=== PATIENT | male | born 1960 | race Two or more races ===

== ENCOUNTER 2016-11-15 07:09 | Outpatient (CLI) ==
[2016-11-15 08:45] LABS: HEMATOCRIT 30.4 % (42.0-52.0); HEMOGLOBIN 10.4 g/dl (14.0-18.0); MEAN CORPUSCULAR HEMOGLOBIN 30.3 pg (27.0-31.0); MEAN CORPUSCULAR HGB CONC 34.2 (31.8-35.4); MEAN CORPUSCULAR VOLUME 88.6 fl (80.0-94.0); PLATELET COUNT 96 10^3/uL (140-440); RED BLOOD COUNT 3.43 10^6/ul (4.70-6.10)
[2016-11-15 09:24] LABS: ALBUMIN 3.5 g/dL (3.4-5.0); ALBUMIN/GLOBULIN RATIO 0.7; ANION GAP 13.8; BILIRUBIN,TOTAL 0.64 mg/dL (0.00-1.20); BUN/CREATININE RATIO 17.34; CALCIUM 9.6 mg/dL (8.2-10.2); CHOL/HDL RATIO 4.6 (4.5-6.4); CREATININE 0.98 mg/dL (0.60-1.10); POTASSIUM 3.8 mmol/L (3.5-5.1); TOTAL PROTEIN 8.5 g/dL (6.4-8.2)
[2016-11-15 09:47] LABS: ANISOCYTOSIS NOT PRESENT (NOT PRESENT); WHITE BLOOD COUNT 1.66 K/ul (4.2-10.2)
--- NOTE | 2016-11-15 12:24 | ECHO2D ---
Date of Exam: 11/15/16 Ordering Physician: JODY ROMERO Reason for Echo: CAD, CABG, SOB M-Mode Normal Adult Results LV Dimensions Normal Adult Results AoV Opening excursions >1.6 >1.6 LVEDD-base- 3.5-5.8 5.3 Ao root dimensions 2.0-3.7 3.6 LVESD-base- 3.1-4.6 L. Atrium dimensions 1.9-3.8 3.3 Post. Wall thickness 0.8-1.1 1.1 IV septum (thickness) 0.7-1.2 1.1 Post. Wall excursion 0.72-1.3 0.8 Septal motion 0.7 Systolic motion R. Ventricular cavity 1.5-2.0 NORMAL LVEF 60% 45% Paradoxical septal wall motion NORMAL 2-D : HYPOKINETIC LEFT VENTRICLE, NORMAL VALVES--NO EFFUSION, NO THROMBUS, LEFT VENTRICLE AND LEFT ATRIAL SIZE ARE NORMAL M-MODE: MV: NORMAL AV: NORMAL TV: NORMAL PV: CHAMBER SIZE: NORMAL WALL MOTION: HYPOKINETIC LEFT VENTRICLE PERICARDIUM: NORMAL INTERPRETATION: 1. HYPOKINETIC LEFT VENTRICLE, LEFT VENTRICULAR EJECTION FRACTION 45% 2. NORMAL VALVES 3. NORMAL LEFT ATRIAL AND LEFT VENTRICLE SIZE MTDD
== END 2016-11-15 07:10 | disposition home or self-care (01) ==
LOC: CAR 07:09
PROVIDERS: ATTEND Emergency Medicine
DX: R06.02 Shortness of breath (principal); I25.810 Atherosclerosis of coronary artery bypass graft(s) without angina pectoris; D64.9 Anemia, unspecified; B19.20 Unspecified viral hepatitis C without hepatic coma; R73.09 Other abnormal glucose; M15.9 Polyosteoarthritis, unspecified; E55.9 Vitamin D deficiency, unspecified; Z12.5 Encounter for screening for malignant neoplasm of prostate
CPT/HCPCS: 36415; 80053; 80061; 82306; 82607; 83036; 84443; 85007; 85025; 86803

== ENCOUNTER 2016-11-16 07:24 | Outpatient (CLI) ==
--- NOTE | 2016-11-17 14:43 | STRESSECHO ---
Date of Test: 11/16/2016 Reason for Exam: SHORTNESS OF BREATH, CORONARY ARTERY DISEASE, HISTORY OF CORONARY ARTERY BYPASS GRAFT Ordering Physician: DR. ROMERO / DR. POOL Current Medications: ASPIRIN, FISH OIL, IRON, LISINOPRIL, METOPROLOL TARTRATE, PLAVIX, PREDNISONE, HYDROXYCHLOROQUINE Physical Findings: S1,S2, NO S3 Resting EKG: SINUS RHYTHM WITH NO ACUTE CHANGES Target Heart Rate: 138/163 OXYGEN SATURATION 98% AT REST ON ROOM AIR STAGE MPH/GRADE HEART RATE BPM BLOOD PRESSURE mmhg RHYTHM S-T SEGMENT +/- UP DOWN SYMPTOMS,COMMENTS At Rest 82 138/80 SR X NONE 1 1.7/10% 140 SR X NONE 2 2.5/12% 3 3.4/14% 4 4.2/16% 5 5.0/18% Immediately after 157 SR X NONE Durations of Exercise: 3 MINUTES AND 37 SECONDS Maximum Heart Rate Reached: 157 Reason for Termination: FATIGUE Minutes Post Exercise: 4 HeartRate: 99 Blood Pressure: 142/80 Rhythm: SR S-T Segment: +/- Symptoms: NONE INTERPRETATION: 98% OXYGEN SATURATION WITH EXERCISE ON ROOM AIR, METS 6.0 1. NO EVIDENCE OF ISCHEMIA BY ST-T WAVE 2. NO COMPLAINTS OF CHEST PAIN OR DISCOMFORT 3. NO ARRHYTHMIAS 4. BLOOD PRESSURE RESPONSE NORMAL 5. NORMAL LEFT VENTRICULAR CONTRACTILITY POST EXERCISE, MILD HYPOKINETIC LEFT VENTRICLE AT REST MTDD
--- NOTE | 2016-11-17 14:59 | ECHOSTRESS ---
Date of Exam: 11/16/2016 Ordering Physician: DR. ROMERO Reason for Echo: SHORTNESS OF BREATH, CORONARY ARTERY DISEASE, HISTORY OF CORONARY ARTERY BYPASS GRAFT M-Mode Normal Adult Results LV Dimensions Normal Adult Results AoV Opening excursions >1.6 LVEDD-base- 3.5-5.8 Ao root dimensions 2.0-3.7 LVESD-base- 3.1-4.6 L. Atrium dimensions 1.9-3.8 Post. Wall thickness 0.8-1.1 IV septum (thickness) 0.7-1.2 Post. Wall excursion 0.72-1.3 Septal motion Systolic motion R. Ventricular cavity 1.5-2.0 LVEF 60% Paradoxical septal wall motion 2-D: HYPOKINETIC LEFT VENTRICLE AT REST, IMPROVED LEFT VENTRICULAR CONTRACTILITY WITH EXERCISE M-MODE: MV: AV: TV: PV: CHAMBER SIZE: WALL MOTION: HYPOKINETIC LEFT VENTRICLE AT REST, IMPROVED LEFT VENTRICULAR CONTRACTILITY WITH EXERCISE PERICARDIUM: INTERPRETATION: 1. HYPOKINETIC LEFT VENTRICLE AT REST, IMPROVED LEFT VENTRICULAR CONTRACTILITY WITH EXERCISE MTDD
== END 2016-11-16 07:25 | disposition home or self-care (01) ==
LOC: CAR 07:24
PROVIDERS: ATTEND Emergency Medicine
DX: R06.02 Shortness of breath (principal); I25.810 Atherosclerosis of coronary artery bypass graft(s) without angina pectoris

== ENCOUNTER 2018-01-08 09:43 | Outpatient (CLI) ==
--- NOTE | 2018-01-08 11:09 | DI ---
Exam: Two x-rays of the chest. Comparison: None available. Reason for exam: Short of breath. FINDINGS: No pneumothorax. Operative changes are seen after midline sternotomy. There is blunting of the left costophrenic angle. Impression: 1. Blunting of the left costophrenic angle likely a pleural effusion. Cannot rule out underlying at electasis or infection. 2. The right lung is clear.
== END 2018-01-08 09:44 | disposition home or self-care (01) ==
LOC: LAB 09:43
PROVIDERS: ATTEND Emergency Medicine
DX: R06.02 Shortness of breath (principal); I25.118 Atherosclerotic heart disease of native coronary artery with other forms of angina pectoris; I50.22 Chronic systolic (congestive) heart failure
CPT/HCPCS: 36415; 80053; 83880; 85025

== ENCOUNTER 2018-01-10 11:40 | Inpatient (IN) ==
[2018-01-10 12:47] VITALS: BMI 27.9
[2018-01-10] MEDS ORDERED: LASIX IVP STA (13:25)
[2018-01-10] MEDS ORDERED: TYLENOL PO PRN (13:26)
[2018-01-10] MEDS: DUONEB NEB SCH ×2 (13:47→22:30)
[2018-01-10] MEDS: SODIUM CHLORIDE 1,000 ML IV SCH (13:51)
--- NOTE | 2018-01-10 15:12 | CT ---
EXAM: CT abdomen pelvis without intravenous contrast 01/10/2018. Sagittal and coronal reformatted i mages obtained HISTORY: Abdominal swelling COMPARISON: None. FINDINGS: The liver, adrenal glands, kidneys, spleen and pancreas show no gross abnormality. Status post cholecystectomy Limited characterization of solid organ pathology due to lack of intravenous contrast. No bowel obstruction. Unremarkable urinary bladder. No free air. Atherosclerotic vascular disease. The appendix is not definitively identified No acute osseous abnormality IMPRESSION: 1. There is a large quantity abdominal and pelvic ascites. 2. Status post cholecystectomy. 3. Subcutaneous edema. 4. Atherosclerotic vascular disease. 5. Limited characterization of solid organ pathology due to the lack of intravenous contrast.
[2018-01-10] MEDS: COREG PO SCH (17:21)
[2018-01-10] MEDS: MICRO-K CAP PO SCH (17:22)
[2018-01-10] MEDS ORDERED: NON-FORMULARY MEDICATION (Potassium Chloride [Potassium Chloride] 10 MEQ) PO SCH (21:00)
[2018-01-11] MEDS: DUONEB NEB SCH ×3 (05:17→20:57)
[2018-01-11] MEDS: LASIX TAB PO SCH (06:22)
[2018-01-11] MEDS ORDERED: ASPIRIN EC PO SCH (08:00)
[2018-01-11] MEDS: COREG PO SCH ×2 (08:54→17:26)
[2018-01-11] MEDS: SODIUM CHLORIDE 1,000 ML IV SCH (08:54)
[2018-01-11] MEDS: MICRO-K CAP PO SCH ×2 (08:54→17:26)
[2018-01-11] MEDS ORDERED: NON-FORMULARY MEDICATION (Aspirin [Aspirin] 325 MG) PO SCH (09:00)
--- NOTE | 2018-01-11 16:39 | CT ---
EXAM: CT chest without contrast HISTORY: Congestive heart failure, abdominal swelling COMPARISON: None TECHNIQUE: CT chest performed without intravenous contrast. Coronal and sagittal reformatted images obtained. FINDINGS: Thyroid and thoracic inlet appear normal. Heart normal in size. Coronary calcifications. No pericardial effusion. Aorta normal in caliber. Mild atherosclerosis. Esophagus unremarkable. Evaluation for lymphadenopathy limited without contrast. No lymphadenopathy identified. Upper abdo chirag ascites is incompletely imaged and similar to CT 01/10/2018. No acute abnormalities of the bon es. Degenerative change in the spine. Median sternotomy wires. Small debris in the trachea. Mild bibasilar atelectasis. Trace bilateral pleural effusions. No airspace consolidation. No pneumothor ax. 6 mm ground-glass nodule versus dependent density right lung image 16. IMPRESSION: 1. Trace bilateral pleural effusions. Mild basilar atelectasis. 2. 6 mm ground-glass nodule right lung versus dependent density. CT chest follow-up recommended in 6 months for reevaluation. 3. Coronary calcifications. Atherosclerosis. 4. Trace debris in the trachea. 5. Upper abdominal ascites, incompletely imaged, with visualized portion similar to CT abdomen pelvi s 01/10/2018
--- NOTE | 2018-01-11 16:40 | US ---
Bilateral lower extremity venous Doppler HISTORY: Pain and tenderness Bilateral lower extremity. FINDINGS: Lower extremity venous structures examined for spontaneous flow, compression and augmentat ion. The common femoral vein, and greater saphenous, profunda, femoral, popliteal, peroneal, anterio r tibial and posterior tibial veins were examined. Visualized vessels are patent to spontaneous flow , compression and augmentation. Bilateral subcutaneous fat edema. IMPRESSION: 1.. No evidence of deep venous thrombosis Bilateral lower extremity.
[2018-01-12] MEDS: DUONEB NEB SCH ×3 (04:38→21:50)
[2018-01-12] MEDS: SODIUM CHLORIDE 1,000 ML IV SCH (05:31)
[2018-01-12] MEDS: LASIX TAB PO SCH (06:01)
[2018-01-12] MEDS ORDERED: BUMEX PO ONE (08:36)
[2018-01-12] MEDS: MICRO-K CAP PO SCH ×2 (09:44→17:23)
[2018-01-12] MEDS: COREG PO SCH ×2 (09:44→17:23)
--- NOTE | 2018-01-12 15:46 | RS.OTINEVL ---
Subjective - Patient information Date of Evaluation: 01/12/18 Date of Arrival on Unit: 01/12/18 Admitted From:: Home Usual Living Arrangement: Alone Living Arrangement Comments: Pt lives alone at home. Home Environment: House Medical History Comments:: Lupus, Edema of BLE in last 3 months, CHF, [place]-2009 Surgical History: CABG Surgical History Comments:: gallbladder, CABG Subjective Information/ Patient Comments:: "I take care of myself." - Level of function Current Level of Function: Partially Dependent Comments: Pt is CGA for functional transfers. Pt has an IV pole and has edema of BLE. Current Equipment Used at Home: None Pain Assessment - Pain Pain Score: 5 Side: left Pain Location Body Site: Hip Pain Aggravating Factors: Changing Position, Standing Pain Alleviating Factors: Position Change Interventions - Objective Patient Orientation: Person, Place, Time, Situation Current Interventions: IV's, Telemetry Observation: Patient has edema in BLE. Pt has swelling in the abdomen. Interventions - ROM Right Upper Extremity AROM: WFL's Left Upper Extremity AROM: WFL's - Strength Right Upper Extremity Strength: Mild Weakness Left Upper Extremity Strength: Mild Weakness - Sensation Right Upper Extremity Sensation: Intact/Normal Left Upper Extremity Sensation: Intact/Normal Balance - Sitting Balance Static Sitting Balance: Good Dynamic Sitting Balance: Good - Standing Balance Static Standing Balance: Fair Dynamic Standing Balance: Fair - Comments Balance Assessment Comments: Fair ADL Skills - Self Feeding Self Feeding: Independent - Grooming Grooming: Independent - Bathing Bathing UE: CGA Bathing LE: CGA - Dressing Dressing UE: Independent, CGA Dressing LE: CGA - Toilet Management Toileting Management: CGA Functional Mobility - Bed Mobility Rolling R/L: Min Assist Scooting: Min Assist Supine to Sit: Min Assist Sit to Supine: Min Assist - Transfers Sit to Stand: Independent Stand to Sit: Independent Stand Pivot Transfers: CGA - Ambulation Weight Bearing Status: FWB Assistive Device Used: No Assistive Device Assistance needed with Ambulation: Min Assist, 1 person assist - Safety Awareness Safety Awareness: Good JASSON INDEX SCORE: . Additional Treatment Performed - Time with patient Total treatment time: 20 Activities Do you enjoy playing games?: No Would you be interested in leaving your room for activities?: No Would you enjoy group activities?: No Patient Interests:: Watching Television Patient Education Patient Education: Education of diagnosis, Home Safety, Education of Plan of Care Teaching Recipient: Patient Teaching Methods: Discussion Assessment Problem List:: Decreased level of function, Weakness, Pain limits previous level of function Further Therapy Indicated?: Yes Evaluation Complexity: HISTORY: Low, EXAM OF BODY SYSTEMS: Low, CLINICAL DECISION MAKING: Low Short Term Goals - Goals GOAL 1: Pt to be SBA for toilet transfer. Goal to be met by: 01/16/18 GOAL 2: Pt to be (I) with sink level ADLS. Goal to be met by: 01/16/18 GOAL 3: Pt to increase activity tolerance for 15 minutes. Goal to be met by: 01/16/18 Intermediate Goals GOAL 1: Pt to be (I) for toilet transfer. Goal to be met by: 01/19/18 GOAL 2: Pt to be independent with all self care management. Goal to be met by: 01/19/18 GOAL 3: Pt to increase activity tolerance for 20 minutes. Goal to be met by: 01/19/18 Plan Plan of Care: Therapeutic EX, Neuromuscular Re-Educ, Therapeutic Activity, Self- Care/Home Management Frequency of Treatment: 1-2 X day, as tolerated Duration of Treatment: 2 Weeks Anticipated Discharge Destination: Home Treatment Diagnosis (ICD 10 Codes): M62.81, R26.81, Has the Physician been added for Co-signature?: Yes
[2018-01-13] MEDS: SODIUM CHLORIDE 1,000 ML IV SCH (00:53)
[2018-01-13] MEDS: DUONEB NEB SCH ×3 (04:18→21:50)
[2018-01-13] MEDS: LASIX TAB PO SCH (05:48)
[2018-01-13] MEDS ORDERED: BUMEX PO ONE (08:36)
[2018-01-13] MEDS ORDERED: LIDOCAINE 2%-EPI 1:100,000 20 ML MDV INJ STA (09:53)
--- NOTE | 2018-01-13 13:21 | PCM.PROG ---
[] PARACENTESIS PROCEDURE After obtaining informed consent about the pros and cons of the procedure. Patient agree for the Diagnostic and Therapeutic Paracentesis. Site: Left LQ prep: cleaned with hibiclens. Prepared the sterile area on left lower quadrant. Anesthesia: 2% Lidocaine infiltrated the area. Procedure; With help of Puncture needle, the needle was in 2 cm deep, fluid started coming, serous, clear , samples collected, and drained total of 550 ml fluid. No resistance while doing the procedure or no pain. After removing needle the area is cleaned and Band aid is applied. Ordered KUB
[2018-01-13] MEDS ORDERED: LIBRIUM PO PRN (13:30)
[2018-01-13] MEDS ORDERED: INFUVITE ADULT IV ONE (14:51)
[2018-01-13] MEDS: INFUVITE ADULT 10 ML in SODIUM CHLORIDE 1,000 ML IV SCH (15:02)
[2018-01-13] MEDS: MICRO-K CAP PO SCH ×2 (15:09→17:35)
--- NOTE | 2018-01-13 15:09 | DI ---
EXAMINATION: Two supine views of the abdomen. HISTORY: Status post procedure, fluid drawn from abdomen. COMPARISONS: 01/10/2018. FINDINGS: There is a paucity of bowel gas. Stool is seen overlying the colon. Surgical clips overl ie the upper abdomen. No suspicious calcifications are seen. Operative changes of midline sternotom y is seen. Osseous structures appear grossly unremarkable. . IMPRESSION: Nonspecific paucity of bowel gas.
[2018-01-13] MEDS: COREG PO SCH ×2 (15:10→17:58)
[2018-01-13] MEDS: THIAMINE IVP SCH (15:10)
[2018-01-13] MEDS: PROTONIX PO SCH ×2 (15:13→17:35)
[2018-01-14] MEDS ORDERED: INFUVITE ADULT IV ONE ×2 (02:01→15:22)
[2018-01-14] MEDS: INFUVITE ADULT 10 ML in SODIUM CHLORIDE 1,000 ML IV SCH ×2 (02:11→15:30)
[2018-01-14] MEDS: DUONEB NEB SCH ×3 (05:02→21:46)
[2018-01-14] MEDS: PROTONIX PO SCH ×2 (05:34→17:10)
[2018-01-14] MEDS: LASIX TAB PO SCH (05:34)
[2018-01-14] MEDS: MICRO-K CAP PO SCH ×2 (08:59→17:11)
[2018-01-14] MEDS: COREG PO SCH ×2 (08:59→17:11)
[2018-01-14] MEDS: THIAMINE IVP SCH (09:00)
[2018-01-14] MEDS ORDERED: ROCEPHIN ONE (13:14)
[2018-01-14] MEDS: ALDACTONE PO SCH (13:19)
[2018-01-14] MEDS: ROCEPHIN 1 GM in SODIUM CHLORIDE 50 ML IV SCH (13:19)
[2018-01-15] MEDS ORDERED: INFUVITE ADULT IV ONE ×2 (02:43→14:27)
[2018-01-15] MEDS: INFUVITE ADULT 10 ML in SODIUM CHLORIDE 1,000 ML IV SCH ×2 (02:49→14:31)
[2018-01-15] MEDS: DUONEB NEB SCH ×2 (05:05→13:34)
[2018-01-15] MEDS: LASIX TAB PO SCH (05:35)
[2018-01-15] MEDS: PROTONIX PO SCH ×2 (05:35→16:38)
--- NOTE | 2018-01-15 12:01 | US ---
EXAM: Bilateral lower extremity venous Doppler History: Bilateral calf pain and swelling. Technique: Multiple sonographic images through the bilateral lower extremities were obtained. Color duplex Doppler was used to interrogate vascular flow. Findings: The bilateral common femoral, greater saphenous, profunda, superficial femoral, popliteal, peroneal, posterior tibial and anterior tibial veins demonstrate spontaneous flow with normal compression and n ormal augmentation. There is bilateral lower extremity subcutaneous edema. Impression: 1. No sonographic evidence for deep venous thrombosis. 2. Bilateral lower extremity subcutaneous edema
[2018-01-15] MEDS: ALDACTONE PO SCH (12:02)
[2018-01-15] MEDS: ROCEPHIN 1 GM in SODIUM CHLORIDE 50 ML IV SCH (12:02)
[2018-01-15] MEDS: COREG PO SCH ×2 (12:03→16:38)
[2018-01-15] MEDS: MICRO-K CAP PO SCH ×2 (12:03→16:38)
[2018-01-15] MEDS: THIAMINE IVP SCH (12:03)
--- NOTE | 2018-01-15 12:37 | PN ---
DATE OF SERVICE: 01/11/18 SUBJECTIVE: The patient was admitted from the office for the acute on chronic heart failure and ascites. CT abdomen did show a large quantity of ascites in the abdominal wall and abdomen. Leg edema is better. REVIEW OF SYSTEMS: CONSTITUTIONAL: No fever, no chills. HEENT: Normal. ENDOCRINE: No weight gain, no weight loss. CVS: No angina symptoms. No CHF symptoms. No palpitations. No atypical chest pain for CAD. No shortness of breath. No PND, no orthopnea. RESPIRATORY: No cough, no hemoptysis. GI: No nausea, no vomiting. No abdominal pain. : No hematuria. No polyuria. MUSCULOSKELETAL: No joint swelling. PSYCHIATRIC: Not anxious. No depression. No suicidal thoughts. No homicidal thoughts. SKIN: Intact. No rash. PHYSICAL EXAMINATION: V/S: Blood pressure 111/71, respiratory rate 16, heart rate 72, temperature 98.6 with saturation 100%. HEENT: Normocephalic, atraumatic. Mucosa dry. Pallor positive. No icterus. NECK: Supple. No JVD, no carotid bruit. No lymphadenopathy. LUNGS: Decreased and basilar crackles. Clear to auscultation. No rales or rhonchi. HEART: S1, S2 normal. No S3. Systolic murmur, gallop or regurgitation. ABDOMEN: Soft, Distention positive. Shifting tenderness is present. Bowel sounds active. No rigidity. No rebound or guarding. No CVA tenderness. EXTREMITIES: No cyanosis, clubbing. Leg edema, 3+ edema up to the thighs. MUSCULOSKELETAL: No joint swelling. NEUROLOGIC: Awake, alert, oriented times three. No focal deficit. LYMPHATIC: No lymph nodes palpable. SKIN: Intact. LABS: Sodium 140, potassium 4.2, chloride 106, bicarb 24, BUN 12, creatinine 0.84, glucose 110, WBC 2.21, hgb 10.3, hct 30.2, plt count 81 ASSESSMENT: 1. Acute on chronic heart failure 2. Ascites rule out occult malignant infections 3. CAD status post bypass surgery 4. Hypertension 5. Dyslipidemia 6. Dependant edema with chronic dermitis PLAN: 1. PT/INR 2. Will get the drainage of the fluid 3. IV fluids 4. DUO NEBS 5. Lasix 6. Daily I&O's TIME SPENT: More than 35 minutes MTDD
--- NOTE | 2018-01-15 13:14 | PN ---
DATE OF SERVICE: 01/12/18 SUBJECTIVE: The patient's leg edema is getting better. Ascites is still present. Will be asking radiology department diagnostic paracentesis. Still short of breath with minimal exertion. REVIEW OF SYSTEMS: CONSTITUTIONAL: No fever, no chills. HEENT: Normal. ENDOCRINE: No weight gain, no weight loss. CVS: No angina symptoms. No CHF symptoms. No palpitations. No atypical chest pain for CAD. Shortness of breath. No PND, no orthopnea. RESPIRATORY: No cough, no hemoptysis. GI: No nausea, no vomiting. No abdominal pain. : No hematuria. No polyuria. MUSCULOSKELETAL: No joint swelling. PSYCHIATRIC: Not anxious. No depression. No suicidal thoughts. No homicidal thoughts. SKIN: Intact. No rash. PHYSICAL EXAMINATION: V/S: Blood pressure 156/83, respiratory rate 20, heart rate 78, temperature 98.4 with saturation 95%. HEENT: Normocephalic, atraumatic. Mucosa dry. Pallor positive. no Icterus. NECK: Supple. No JVD, no carotid bruit. No lymphadenopathy. LUNGS: Decreased and basilar crackles. Clear to auscultation. No rales or rhonchi. HEART: S1, S2 normal. No S3. No murmur, gallop or regurgitation. ABDOMEN: Soft, nontender. Bowel sounds active. No rigidity. No rebound or guarding. No CVA tenderness. EXTREMITIES: No cyanosis, clubbing. 1+ edema. MUSCULOSKELETAL: No joint swelling. NEUROLOGIC: Awake, alert, oriented times three. No focal deficit. LYMPHATIC: No lymph nodes palpable. SKIN: Intact. LABS: WBC 2.25, hgb 9.4, hct 27.7, plt count 102, sodium 142, potassium 3.8, chloride 108, bicarb 26, BUN 13, creatinine 0.82 and glucose 98. CAT scan of the chest did show trace pulmonary pleural effusion and basilar atelectasis. Venous Doppler was done which was negative for the clots. ASSESSMENT: 1. Acute on chronic heart failure 2. CAD 3. CHF 4. Bilateral pleural effusion 5. Ascites reason unknown, probably from the CHF but will do the therapeutic diagnostic paracentesis PLAN: 1. Bumex 1mg IV push 2. PT/INR in the morning 3. Continue Coreg 4. Continue Daily I&O 5. IV fluids at 50ml per hour TIME SPENT: More than 35 minutes MTDD
--- NOTE | 2018-01-15 13:38 | CT ---
Exam: CT abdomen pelvis without intravenous contrast. Comparison: 01/10/2018. Reason for exam: Ascites, distension, paracentesis. FINDINGS: There is a small to moderately sized right-sided pleural effusion with basilar atelectasis /pneumonia bilaterally. Similar appearing, large amount of intra-abdominal ascites is seen within the abdomen pelvis. Image interpretation is limited by the lack of intravenous contrast administration. The gallbladder has been removed. The splenic parenchyma, adrenal glands, and pancreas appear grossly unremarkable within limitations o f a noncontrasted study. No obvious hydronephrosis, hydroureter, or nephrolithiasis in either kidney. The bladder appears grossly unremarkable. Degenerative disease is seen in the lumbosacral spine with osteophyte formation. Atherosclerotic dis ease is seen within the aorta and distal arterial vasculature. Inflammatory changes are seen within the subcutaneous fat. Impression: 1. Similar appearing large amount of abdominal ascites. 2. New right-sided pleural effusion with basilar atelectasis/pneumonia. 3. Similar appearing anasarca.
--- NOTE | 2018-01-15 13:58 | RS.PTINEVL ---
Subjective - Patient information Date of Evaluation: 01/15/18 Date of Arrival on Unit: 01/10/18 Admitted From:: Home Diagnosis: acute on chronic CHF, ascites, r/o malignant infection Usual Living Arrangement: Alone Home Environment: House, Level/No stairs Medical History: Hypertension, CHF Medical History Comments:: chronic dermatitis, depression, lupus, [place], dyslipidemia, CAD LATEX ALLERGY?: No Surgical History: Cholecystectomy, CABG Surgical History Comments:: underwent paracentesis this hosp stay Subjective Information/ Patient Comments:: pt states that he doesn't feel like he needs PT. He was cooperative with evaluation, however states he does not feel like messing with PT at this time, states he doesn't feel he needs therapy. - Level of function Prior to this admission, the patient could do the following:: Independent Selfcare, Independent ADL's, Independent Ambulation Current Level of Function: Partially Dependent Current Equipment Used at Home: None Interventions - Objective Patient Orientation: Person, Place, Time, Situation Current Interventions: IV's, Telemetry Range of Motion - ROM Right Upper Extremity AROM: WFL's Left Upper Extremity AROM: WFL's Right Lower Extremity AROM: WFL's Left Lower Extremity AROM: WFL's Muscle Strength - Muscle Strength Right Upper Extremity Strength: Mild Weakness (grossly 4/5) Left Upper Extremity Strength: Mild Weakness (grossly 4/5) Right Lower Extremity Strength: Mild Weakness (hip flex 4/5, knee flex/ext 4+/5 , ankle Df/PF 4+/5) Left Lower Extremity Strength: Mild Weakness (hip flex 4/5, knee flex/ext 4+/5, ankle Df/PF 4+/5) Sensation - Sensation Right Upper Extremity Sensation: Intact/Normal Left Upper Extremity Sensation: Intact/Normal Right Lower Extremity Sensation: Intact/Normal Left Lower Extremity Sensation: Intact/Normal Palpation Palpation Findings: None/Normal Balance - Sitting Balance and Reactions Static Sitting Balance: Good Dynamic Sitting Balance: Good - Standing Balance and Reactions Static Standing Balance: Fair Dynamic Standing Balance: Fair Standing Protective Reactions: Delayed Left, Delayed Right - Comments Balance Assessment Comments: pt with slight increased lat sway with amb. pt with no LOB during gait. Functional Mobility - Bed Mobility Rolling R/L: Independent Scooting: Independent Supine to Sit: Independent Sit to Supine: Independent - Transfers Sit to Stand: Supervision Stand to Sit: Supervision - Safety Awareness Safety Awareness: Good JASSON INDEX SCORE: n/a Ambulation - Ambulation Assistive Device Used: Gait belt Orthotic/Prosthetic Device: No Distance: 140ft Assistance needed with Ambulation: Supervision, CGA Gait Deviations: Forward posture Ambulation Comments: pt amb with slight flexed posture, no LOB with amb. Factors Affecting Ambulation: Decreased Balance, Weakness, Decreased Safety, Limited Endurance Treatment time - Time with patient Total treatment time: 26 Patient Education - Education Patient Education: Activity Modification, Education of Plan of Care Teaching Recipient: Patient Teaching Methods: Discussion (discussion regarding safety with amb and benefits of PT) Assessment - Assessment Problem List:: Decreased level of function, Decreased safety/Risk of falls, Weakness Rehab Potential: Good Further Therapy Indicated?: No Comments: pt refused further PT stating he does not feel he needs PT Evaluation Complexity: HISTORY: Medium (CHF, depression, ascites, HTN), EXAM OF BODY SYSTEMS: Medium (posture, balance, gait, strength), CLINICAL PRESENTATION: Medium, CLINICAL DECISION MAKING: Medium Plan Other:: eval only Frequency of Treatment: One time treatment Duration of Treatment: One Time Treatment Anticipated Discharge Destination: Home Treatment Diagnosis (ICD 10 Codes): M62.81 Has the Physician been added for Co-signature?: Yes
--- NOTE | 2018-01-15 14:02 | US ---
EXAM: Ultrasound abdomen limited. HISTORY: Elevated liver function tests. COMPARISON: CT earlier the same day. TECHNIQUE: Abdominal, real time with image documentation: limited (eg, single organ, quadrant, foll ow-up) FINDINGS: The liver demonstrates a nodular surface contour with coarsening of the echotexture patter n. No focal lesion identified. There is no intrahepatic biliary dilatation. Portal venous flow is normal in direction. The gallbladder is absent. Common duct measures approximately 0.4 cm. Pancreas is not seen due to bowel gas. Moderate amount of ascites noted around the liver. IMPRESSION: Cirrhosis with ascites.
--- NOTE | 2018-01-15 14:54 | PN ---
DATE OF SERVICE: 01/13/18 SUBJECTIVE: The patient was admitted with acute on chronic renal failure and ascites. Initially thought that the ascites was from the patient's history of CHF and Coronary artery disease with worsening swelling in the both lower extremities but found most likely to be a liver related ascites. On further questioning the patient agree that he used to drink a lot almost one pint of liquor everyday cutting down for last three months but the neighbor and friends that came to visit the patient did give a different history. The neighbor are friends and Chalo did say that we talk about patient in front of him and talked in front of him and he did agree that he has been having problems with alcohol. Otherwise no withdraw signs so far at this time. REVIEW OF SYSTEMS: CONSTITUTIONAL: No fever, no chills. HEENT: Normal. ENDOCRINE: No weight gain, no weight loss. CVS: No angina symptoms. No CHF symptoms. No palpitations. No atypical chest pain for CAD. No shortness of breath. No PND, no orthopnea. RESPIRATORY: No cough, no hemoptysis. GI: No nausea, no vomiting. No abdominal pain. : No hematuria. No polyuria. MUSCULOSKELETAL: No joint swelling. PSYCHIATRIC: Not anxious. No depression. No suicidal thoughts. No homicidal thoughts. SKIN: Intact. No rash. PHYSICAL EXAMINATION: V/S: Blood pressure 127/82, respiratory rate 18, heart rate 77, temperature 98.6 and saturation 98%. HEENT: Normocephalic, atraumatic. Mucosa dry. Pallor positive. No icterus. NECK: Supple. No JVD, no carotid bruit. No lymphadenopathy. LUNGS: Decreased and basilar crackles. Clear to auscultation. No rales or rhonchi. HEART: S1, S2 normal. No S3. No murmur, gallop or regurgitation. ABDOMEN: Soft, Ascites is present, shifting tenderness is present. Nontender. Bowel sounds active. No rigidity. No rebound or guarding. No CVA tenderness. EXTREMITIES: No cyanosis, clubbing. 2+ leg edema. MUSCULOSKELETAL: No joint swelling. NEUROLOGIC: Awake, alert, oriented times three. No focal deficit. LYMPHATIC: No lymph nodes palpable. SKIN: Intact. LABS: WBC 2.34, hgb 9.5, hct 27.6, plt count 100, Sodium 143, potassium 3.4, chloride 110, bicarb 25, BUN 13, creatinine 0.74, glucose 93 ASSESSMENT: 1. Acute on chronic heart failure 2. Ascites most likely the liver cirrhosis 3. Worsening leg edema 4. Pleural effusion 5. CAD status post bypass surgery PLAN: 1. Will do the therapeutic diagnostic paracentesis 2. Continue the Bumex 3. Will order the Hepatitis Panel 4. Start the patient on the MVA and Thiamine and Librium 5. Out of bed to chair activity as tolerated TIME SPENT: More than 35 minutes MTDD
[2018-01-16] MEDS: DUONEB NEB SCH ×2 (00:11→05:36)
[2018-01-16] MEDS ORDERED: INFUVITE ADULT IV ONE (02:30)
[2018-01-16] MEDS: INFUVITE ADULT 10 ML in SODIUM CHLORIDE 1,000 ML IV SCH (02:35)
[2018-01-16 05:18] VITALS: TEMP 99
[2018-01-16] MEDS: LASIX TAB PO SCH (06:13)
[2018-01-16] MEDS: PROTONIX PO SCH (06:13)
[2018-01-16] MEDS ORDERED: INFUVITE ADULT 10 ML in SODIUM CHLORIDE 1,000 ML IV SCH (08:30)
[2018-01-16] MEDS: MICRO-K CAP PO SCH (08:47)
[2018-01-16] MEDS: ALDACTONE PO SCH (08:47)
[2018-01-16] MEDS: ROCEPHIN 1 GM in SODIUM CHLORIDE 50 ML IV SCH (08:47)
[2018-01-16] MEDS: COREG PO SCH (08:48)
[2018-01-16] MEDS: THIAMINE IVP SCH (08:48)
[2018-01-16 10:22] VITALS: BP 115/74
--- NOTE | 2018-01-16 10:22 | PN ---
DATE OF SERVICE: 01/14/18 SUBJECTIVE: The patient did have a paracentesis yesterday and he did the procedure good. Still site is oozing some but the patient was feeling less shortness of breath after draining half liter. Shortness of breath with minimal exertion. Urine output is good. REVIEW OF SYSTEMS: CONSTITUTIONAL: No fever, no chills. HEENT: Normal. ENDOCRINE: No weight gain, no weight loss. CVS: No angina symptoms. No CHF symptoms. No palpitations. No atypical chest pain for CAD. Shortness of breath. No PND, no orthopnea. RESPIRATORY: No cough, no hemoptysis. GI: No nausea, no vomiting. No abdominal pain. : No hematuria. No polyuria. MUSCULOSKELETAL: No joint swelling. PSYCHIATRIC: Not anxious. No depression. No suicidal thoughts. No homicidal thoughts. SKIN: Intact. No rash. PHYSICAL EXAMINATION: V/S: Blood pressure 114/74, respiratory rate 18, heart rate 79, temperature 99 and saturation 98%. HEENT: Normocephalic, atraumatic. Mucosa dry, Pallor positive. No icterus. NECK: Supple. No JVD, no carotid bruit. No lymphadenopathy. LUNGS: Decreased and basilar crackles. Clear to auscultation. No rales or rhonchi. HEART: S1, S2 normal. No S3. No murmur, gallop or regurgitation. ABDOMEN: Soft, nontender. Bowel sounds active. No rigidity. No rebound or guarding. No CVA tenderness. Ascites present, shifting dullness present. Left sided puncture wound is still oozing some clear serous fluid. EXTREMITIES: No cyanosis, clubbing. 2+ edema. MUSCULOSKELETAL: No joint swelling. NEUROLOGIC: Awake, alert, oriented times three. No focal deficit. LYMPHATIC: No lymph nodes palpable. SKIN: Intact. LABS: Sodium 142, potassium 3.8, chloride 109, bicarb 23, BUN 15, creatinine 0.78, glucose 101, WBC 2.44, hgb 9.5, hct 28.9, plt count 103. ASSESSMENT: 1. Ascites 2. Liver cirrhosis mostly from the alcohol cirrhosis, given the patient's history of alcoholism. Patient accepts that he has been drinking a lot lately 3. Acute and chronic heart failure, systolic heart failure 4. CAD status post bypass surgery 5. Dependant leg edema, worsening PLAN: 1. Will add the Rocephin 1 gram daily as a prophylactic for the spontaneous bacterial peritonitis 2. Breathing treatments 3. Daily I&O's 4. Spirolactone 50mg PO daily 5. Keep the legs elevated 6. Followup on the labs TIME SPENT: More than 35 minutes MTDD
--- NOTE | 2018-01-16 15:17 | PN ---
DATE OF SERVICE: 01/15/18 SUBJECTIVE: The patient did gain again two more pounds. The patient is still complaining of right calf tenderness and worsening of the ascitic fluid. REVIEW OF SYSTEMS: CONSTITUTIONAL: No fever, no chills. HEENT: Normal. ENDOCRINE: No weight gain, no weight loss. CVS: No angina symptoms. No CHF symptoms. No palpitations. No atypical chest pain for CAD. Shortness of breath with minimal exertion. No PND, no orthopnea. RESPIRATORY: No cough, no hemoptysis. GI: No nausea, no vomiting. No abdominal pain. : No hematuria. No polyuria. Urinating good. MUSCULOSKELETAL: No joint swelling. PSYCHIATRIC: Not anxious. No depression. No suicidal thoughts. No homicidal thoughts. SKIN: Intact. No rash. PHYSICAL EXAMINATION: V/S: Blood pressure 122/66, respiratory rate 16, heart rate 75, temperature 98.9 and saturation 98%. HEENT: Normocephalic, atraumatic. Mucosa dry, Pallor positive. No icterus. NECK: Supple. No JVD, no carotid bruit. No lymphadenopathy. LUNGS: Decreased and basilar crackles right more than the left. Clear to auscultation. No rales or rhonchi. HEART: S1, S2 normal. No S3. No murmur, gallop or regurgitation. ABDOMEN: Soft, nontender. Bowel sounds active. No rigidity. No rebound or guarding. No CVA tenderness. Ascites positive, fluid shifting dullness positive. EXTREMITIES: No cyanosis, clubbing. 2-3+ edema. MUSCULOSKELETAL: No joint swelling. NEUROLOGIC: Awake, alert, oriented times three. No focal deficit. LYMPHATIC: No lymph nodes palpable. SKIN: Intact. LABS: WBC 2.44, hgb 9.5, hct 28.9, plt count 103, sodium 142, potassium 3.8, chloride 109, bicarb 26, BUN 15, creatinine 0.78, glucose 101. ASSESSMENT: 1. Ascites 2. Alcohol related cirrhosis 3. CAD 4. CHF 5. Bypass surgery 6. Hypertension 7. Dyslipidemia PLAN: 1. Continue the Librium, Rocephin, Coreg and Lasix 2. Spironolactone 50mg PO daily 3. Protonix TIME SPENT: More than 35 minutes MTDD
--- NOTE | 2018-01-18 11:36 | DS ---
DATE OF SERVICE: 01/16/18 FINAL DIAGNOSIS: 1. Acute on chronic CHF 2. Abdominal and pelvic ascites, CT of abdomen and pelvis 3. Leg edema 4. Left calf pain 5. CAD with history of [place] 6. Depression 7. Lupus 8. Former smoker 9. Hepatitis C 10.Liver cirrhosis 11.Status post paracentesis 12.CABG 2012 DISCHARGE INSTRUCTIONS: Transition care unit for IV Antibiotic, medication management, physical therapy and occupational therapy. Physical therapy please see and evaluate the patient. Continue the home medications. Daily I&O's MEDICATIONS AT DISCHARGE: Spirolactone Coreg Lasix NEW PRESCRIPTIONS: Rocephin 1 gram daily DUO NEBS DIET INSTRUCTIONS: Cardiac and healthy ACTIVITY: As much as tolerated. DISEASE SPECIFIC EDUCATION: CHF Ascites Leg edema Hepatitis C Been discussed and verbalized understanding. HOSPITAL COURSE: 57 year old male Chalo Morgan came to the office complaining of worsening leg edema and swelling in the belly. The patient was almost looking like 9 months . We did start the patient on the Lasix and Coreg, did not change any weight. The patient was admitted to the hospital. BUN and creatinine was steady. Lasix 40mg IV push was given. PT/INR is normal. CT abdomen could not tell, it was giving information only about the ascites. Given his CHF and out of medications for almost one year being noncompliant the patient was initially treated for the heart failure and fluid overload and anasarca with ascites but after 2-3 days the patient started complaining about jitteriness. The patient's family and the neighbors did complain that he drinks alcohol everyday. We thought it can be liver cirrhosis and can be the reason for the ascites. Pleural tapping was done which was uneventful and did show most like the source of the liver cirrhosis. Hepatitis C also came positive. Spirolactone started, kept the legs elevated. CT chest repeated showing atelectasis and pneumonia on right side. With the given pleural tapping the patient was feeling some better with the respiratory distress from the ascites. At that time the patient was a good candidate for the transition care. He is being admitted to the Transition care at this time. TIME SPENT: MORE THAN 65 MINUTES MTDD
== END 2018-01-16 13:04 | disposition swing bed (61) | DRG 291 ==
LOC: MEDSURG B 11:40
PROVIDERS: ADMIT Emergency Medicine; ATTEND Emergency Medicine
PROC: 0W9G3ZX Drainage of Peritoneal Cavity, Percutaneous Approach, Diagnostic (ICD-10-PCS; principal; 2018-01-10)
DX: I50.23 Acute on chronic systolic (congestive) heart failure (principal); J18.9 Pneumonia, unspecified organism; J98.11 Atelectasis; J90 Pleural effusion, not elsewhere classified; K70.31 Alcoholic cirrhosis of liver with ascites; B19.20 Unspecified viral hepatitis C without hepatic coma; M79.662 Pain in left lower leg; R60.0 Localized edema; I25.10 Atherosclerotic heart disease of native coronary artery without angina pectoris; M32.9 Systemic lupus erythematosus, unspecified; I25.2 Old myocardial infarction; I10 Essential (primary) hypertension; E78.5 Hyperlipidemia, unspecified; L30.8 Other specified dermatitis; F32.9 Major depressive disorder, single episode, unspecified; Z95.1 Presence of aortocoronary bypass graft; Z98.890 Other specified postprocedural states; Z79.899 Other long term (current) drug therapy
CPT/HCPCS: 36415; 80053; 80074; 81001; 82140; 82272; 82378; 82550; 82553; 82607; 82728; 82746; 82945; 83540; 83550; 83615; 84157; 84466; 84484; 85025; 85045; 85610; 87070; 87205; 87522; 89051; 93005; 93010; 94640

== ENCOUNTER 2018-01-16 13:15 | Inpatient (IN) ==
[2018-01-16] MEDS ORDERED: TYLENOL PO PRN (13:28)
[2018-01-16] MEDS ORDERED: LIBRIUM PO PRN (13:29)
[2018-01-16] MEDS: DUONEB NEB SCH ×2 (14:03→20:50)
[2018-01-16 14:55] VITALS: BMI 27.6
--- NOTE | 2018-01-16 16:13 | RS.PTINEVL ---
Subjective - Patient information Date of Evaluation: 01/16/18 Date of Arrival on Unit: 01/16/18 Admitted From:: In-House Transfer (swing bed transfer) Diagnosis: acute on chronic heart failure, hep C, Ascites Usual Living Arrangement: Alone Living Arrangement Comments: Pt lives alone at home. Home Environment: House, Stairs (few), No rail Medical History: Hypertension, CHF Medical History Comments:: chronic dermatitis, depression, lupus, [place], CAD, dyslipidemia LATEX ALLERGY?: No Surgical History: CABG Medications: see chart Subjective Information/ Patient Comments:: pt states he is willing to work with PT now since he is staying for IV antibiotics. - Level of function Prior to this admission, the patient could do the following:: Independent Selfcare, Independent ADL's, Independent Ambulation Current Level of Function: Partially Dependent Current Equipment Used at Home: none Interventions - Objective Patient Orientation: Person, Place, Time, Situation Current Interventions: IV's, Telemetry Observation: pt with 2+pitting edema BLE Range of Motion - ROM Right Upper Extremity AROM: WFL's Left Upper Extremity AROM: WFL's Right Lower Extremity AROM: WFL's Left Lower Extremity AROM: WFL's Muscle Strength - Muscle Strength Right Upper Extremity Strength: Mild Weakness (grossly 4/5) Left Upper Extremity Strength: Mild Weakness (grossly 4/5) Right Lower Extremity Strength: Mild Weakness (hip flex 4-/5, knee flex/ext 4/5 , ankle Df/PF 4/5) Left Lower Extremity Strength: Mild Weakness (hip flex 4-/5, knee flex/ext 4/5, ankle Df/PF 4/5) Sensation - Sensation Right Upper Extremity Sensation: Intact/Normal Left Upper Extremity Sensation: Intact/Normal Right Lower Extremity Sensation: Intact/Normal Left Lower Extremity Sensation: Intact/Normal Palpation Palpation Findings: None/Normal Balance - Sitting Balance and Reactions Static Sitting Balance: Good Dynamic Sitting Balance: Good - Standing Balance and Reactions Static Standing Balance: Fair Dynamic Standing Balance: Poor Standing Equilibrium Reactions: Delayed Left, Delayed Right Standing Protective Reactions: Delayed Left, Delayed Right - Comments Balance Assessment Comments: Tinetti score 17/28 Functional Mobility - Bed Mobility Rolling R/L: Independent Scooting: Independent Supine to Sit: Supervision Sit to Supine: Supervision - Transfers Sit to Stand: Supervision, CGA Stand to Sit: Supervision, CGA - Safety Awareness Safety Awareness: Fair JASSON INDEX SCORE: 69/100 Ambulation - Ambulation Assistive Device Used: Gait belt Orthotic/Prosthetic Device: No Distance: 140ft Assistance needed with Ambulation: CGA Gait Deviations: Forward posture, Short stride Ambulation Comments: pt amb without AD with increased lat sway, decreased step length. Factors Affecting Ambulation: Decreased Balance, Weakness, Decreased Safety, Limited Endurance Treatment time - Time with patient Total treatment time: 26 Patient Education - Education Patient Education: Activity Modification, Education of Plan of Care Teaching Recipient: Patient Teaching Methods: Discussion Comments: discussion with patient regarding POC as well as safety with amb. Assessment - Assessment Problem List:: Decreased level of function, Requires training/education, Decreased safety/Risk of falls, Weakness Rehab Potential: Good Further Therapy Indicated?: Yes Evaluation Complexity: HISTORY: Medium (hep c, CHF, ascites, depression), EXAM OF BODY SYSTEMS: Medium (strength, gait, balance, transfers), CLINICAL PRESENTATION: Medium (evolving), CLINICAL DECISION MAKING: Medium Short Term Goals GOAL #1: pt transfer sup to/from sit independently, sit to/from stand SBA Goal to be met by: 01/19/18 GOAL #2: pt amb 150ft with/without AD with no LOB with SBA to CGA Goal to be met by: 01/19/18 GOAL #3: pt with improved dyn stand balance as noted by tinetti score Goal to be met by: 01/19/18 GOAL #4: pt with improved BLE strength 4 to 4+/5 Goal to be met by: 01/19/18 Etl Manager Goals GOAL #1: pt transfer sit to/from stand independently Goal to be met by: 01/24/18 GOAL #2: pt amb functional household distances w/wo AD for independence at home Goal to be met by: 01/24/18 GOAL #3: pt ascend/descend 5 steps without HR with SBA to enter/exit home Goal to be met by: 01/24/18 Plan Plan of Care: Therapeutic EX, Therapeutic Activity Other:: gait training Frequency of Treatment: 1-2 X day, as tolerated Duration of Treatment: 7-8 days Anticipated Discharge Destination: Home Treatment Diagnosis (ICD 10 Codes): R26.2 difficulty walking. R 26.81 balance impaired Has the Physician been added for Co-signature?: Yes
[2018-01-16] MEDS: COREG PO SCH (16:43)
[2018-01-16] MEDS: MICRO-K CAP PO SCH (16:43)
[2018-01-16] MEDS: PROTONIX PO SCH (16:43)
[2018-01-16] MEDS ORDERED: NON-FORMULARY MEDICATION (Potassium Chloride [Potassium Chloride] 10 MEQ) PO SCH (21:00)
[2018-01-17] MEDS: INFUVITE ADULT 10 ML in SODIUM CHLORIDE 1,000 ML IV SCH ×2 (03:09→04:27)
[2018-01-17] MEDS ORDERED: INFUVITE ADULT IV ONE (04:21)
[2018-01-17] MEDS: DUONEB NEB SCH ×3 (05:05→21:25)
[2018-01-17] MEDS: LASIX TAB PO SCH (05:46)
[2018-01-17] MEDS: PROTONIX PO SCH ×2 (05:46→17:06)
[2018-01-17] MEDS ORDERED: ASPIRIN EC PO SCH (08:00)
[2018-01-17] MEDS: ROCEPHIN 1 GM in SODIUM CHLORIDE 50 ML IV SCH (08:27)
[2018-01-17] MEDS: THIAMINE IVP SCH (08:28)
[2018-01-17] MEDS: ALDACTONE PO SCH (08:28)
[2018-01-17] MEDS: COREG PO SCH ×2 (08:28→17:06)
[2018-01-17] MEDS: MICRO-K CAP PO SCH ×2 (08:28→17:06)
[2018-01-17] MEDS ORDERED: SODIUM CHLORIDE IV SCH (09:00)
[2018-01-17] MEDS ORDERED: NON-FORMULARY MEDICATION (Aspirin [Aspirin] 325 MG) PO SCH (09:00)
[2018-01-17] MEDS ORDERED: THIAMINE IV SCH (09:00)
--- NOTE | 2018-01-17 10:09 | RS.OTINEVL ---
Subjective - Patient information Date of Evaluation: 01/17/18 Date of Arrival on Unit: 01/16/18 Admitted From:: In-House Transfer (swing bed transfer) Usual Living Arrangement: Alone Living Arrangement Comments: Pt lives alone at home. Pt has a cat at home too. Home Environment: House, Stairs (few), No rail Medical History: Hypertension, CHF Medical History Comments:: chronic dermatitis, depression, lupus, [place], CAD, dyslipidemia LATEX ALLERGY?: No Surgical History: Shoulder Replacement, CABG Surgical History Comments:: CABG 2009, [place] 2008, Hep C+ 2017, Quit smoking 2016, 1984 diagnosed with systemic Lupus Medications: see chart Subjective Information/ Patient Comments:: "I might like someone to come to help me clean 1X wk." - Level of function Prior to this admission, the patient could do the following:: Independent Selfcare, Independent ADL's, Independent Ambulation Abilities prior to this admission: Pt was singing in a band, and at jehovah's witness. Pt was having difficulty with transfers but was cruising on the furniture. Pt was independent with UB dressing and LB dressing. Pt uses a shoe horn to put his shoes on. Pt does not wear socks. Current Level of Function: Partially Dependent Current Equipment Used at Home: Long handle shoe horn to don and doff shoes. Pain Assessment - Pain Pain Score: 0 (Left hip sometimes.) Interventions - Objective Patient Orientation: Person, Place, Time, Situation Current Interventions: IV's Observation: Pt is very modest. Pt uses a urinal independently. Pt is weak and would benefit from skilled OT. Pt has extended abdomen. Pt has edema of BLE. Interventions - ROM Right Upper Extremity AROM: WFL's Left Upper Extremity AROM: WFL's - Strength Right Upper Extremity Strength: Mild Weakness Left Upper Extremity Strength: Mild Weakness - Sensation Right Upper Extremity Sensation: Intact/Normal Left Upper Extremity Sensation: Intact/Normal Balance - Sitting Balance Static Sitting Balance: Good Dynamic Sitting Balance: Good - Standing Balance Static Standing Balance: Fair Dynamic Standing Balance: Fair ADL Skills - Self Feeding Self Feeding: Independent - Grooming Grooming: Set Up Only - Bathing Bathing UE: Set Up Only Bathing LE: Min Assist - Dressing Dressing UE: Independent Dressing LE: Supervision - Toilet Management Toileting Management: Min Assist - Comments Comments:: Pt requires assistance with the IV pole to get to the bathroom. Functional Mobility - Bed Mobility Rolling R/L: Min Assist Scooting: CGA Supine to Sit: Min Assist Sit to Supine: Independent - Transfers Sit to Stand: CGA Stand to Sit: Independent, CGA - Ambulation Weight Bearing Status: FWB Assistive Device Used: No Assistive Device Assistance needed with Ambulation: CGA - Safety Awareness Safety Awareness: Good JASSON INDEX SCORE: 69 Additional Treatment Performed - Time with patient Total treatment time: 21 Activities Would you enjoy group activities?: No Do you have difficulty with your vision?: No What types of things do you enjoy doing? Any Hobbies?: Playing in a [employer], jehovah's witness Patient Interests:: Watching Television Patient Education Patient Education: Home Safety, Education of Plan of Care Teaching Recipient: Patient Teaching Methods: Discussion Assessment Problem List:: Decreased level of function, Requires training/education, Decreased safety/Risk of falls, Weakness Rehab Potential: Good Further Therapy Indicated?: Yes Evaluation Complexity: HISTORY: Low, EXAM OF BODY SYSTEMS: Low, CLINICAL DECISION MAKING: Low Short Term Goals - Goals GOAL 1: Pt to be Mod-I for donning LE dressing. Goal to be met by: 01/24/18 GOAL 2: Pt to be (I) with sink level ADLS. Goal to be met by: 01/24/18 GOAL 3: Pt to increase activity tolerance for 15 minutes. Goal to be met by: 01/24/18 Inside Sales Assistant Goals GOAL 1: Pt to be (I) for BLE dressing. Goal to be met by: 01/26/18 GOAL 2: Pt to be independent with all self care management. Goal to be met by: 01/26/18 Progress towards goal: No Change GOAL 3: Pt to increase activity tolerance for 20 minutes. Goal to be met by: 01/26/18 Plan Plan of Care: Therapeutic EX, Neuromuscular Re-Educ, Therapeutic Activity, Self- Care/Home Management Frequency of Treatment: 1-2 X day, as tolerated Duration of Treatment: 2 Weeks Anticipated Discharge Destination: Home Treatment Diagnosis (ICD 10 Codes): M62.81 Muscle weakness, Z74.1 Need for assistance with personal care. Has the Physician been added for Co-signature?: Yes
--- NOTE | 2018-01-17 13:34 | DI ---
EXAM: Single view of the abdomen. History: Abdominal distension. Comparison: CT abdomen pelvis 01/15/2018 Findings: Nonspecific but nonobstructive bowel gas pattern. No free intraperitoneal air. Surgical clips seen within the abdomen. No acute osseous abnormalities. Atherosclerotic vascular calcificati ons. The central bowel loops again suggesting ascites. Impression: No evidence for bowel obstruction.
[2018-01-18] MEDS: DUONEB NEB SCH ×3 (04:54→23:50)
[2018-01-18] MEDS: PROTONIX PO SCH ×2 (05:37→16:37)
[2018-01-18] MEDS: LASIX TAB PO SCH (05:37)
[2018-01-18] MEDS: ROCEPHIN 1 GM in SODIUM CHLORIDE 50 ML IV SCH (08:31)
[2018-01-18] MEDS: ALDACTONE PO SCH (08:31)
[2018-01-18] MEDS: COREG PO SCH ×2 (08:31→16:37)
[2018-01-18] MEDS: MICRO-K CAP PO SCH ×2 (08:31→16:37)
[2018-01-18] MEDS: INFUVITE ADULT 10 ML in SODIUM CHLORIDE 1,000 ML IV SCH (08:32)
[2018-01-18] MEDS: THIAMINE IVP SCH (08:32)
--- NOTE | 2018-01-18 12:46 | HP ---
DATE OF SERVICE: 01/16/18 CHIEF COMPLAINT/HISTORY OF PRESENT ILLNESS: 57 year old male Chalo Morgan came to the office complaining of worsening leg edema and swelling in the belly. The patient was almost looking like 9 months . We did start the patient on the Lasix and Coreg, did not change any weight. The patient was admitted to the hospital. BUN and creatinine was steady. Lasix 40mg IV push was given. PT/INR is normal. CT abdomen could not tell, it was giving information only about the ascites. Given his CHF and out of medications for almost one year being noncompliant the patient was initially treated for the heart failure and fluid overload and anasarca with ascites but after 2-3 days the patient started complaining about jitteriness. The patient's family and the neighbors did complain that he drinks alcohol everyday. We thought it can be liver cirrhosis and can be the reason for the ascites. Pleural tapping was done which was uneventful and did show most like the source of the liver cirrhosis. Hepatitis C also came positive. Spirolactone started, kept the legs elevated. CT chest repeated showing atelectasis and pneumonia on right side. With the given pleural tapping the patient was feeling some better with the respiratory distress from the ascites. At that time the patient was a good candidate for the transition care. He is being admitted to the Transition care at this time. REVIEW OF SYSTEMS: CONSTITUTIONAL: No fever, no chills. HEENT: Normal. ENDOCRINE: No weight gain; no weight loss. CVS: No chest pain. No PND, no orthopnea. No shortness of breath. No PND, no orthopnea. RESPIRATORY: No cough, no congestion. No hemoptysis. GI: No nausea, no vomiting. No abdominal pain. No melena. : No hematuria. No polyuria. MUSCULOSKELETAL: No joint swelling. PSYCHIATRIC: Not anxious. No depression. No suicidal thoughts. No homicidal thoughts. SKIN: Intact, no open lesions. PAST MEDICAL HISTORY: Allergic sinusitis Chest pain Lupus PAST SURGICAL HISTORY: Cholecystectomy Coronary artery bypass graft. PERSONAL HISTORY: Never smoker and denies any illicit drug use. FAMILY HISTORY: The patient reports no known family medical history MEDICATIONS: Coreg Potassium Chloride Lasix Aspirin ALLERGIES: Penicillin PHYSICAL EXAMINATION: V/S: Blood pressure 110/69, respiratory rate 20, heart rate 77, temperature 98.2 with saturation 99%. HEENT: Atraumatic, normocephalic. No scleral icterus. Pallor positive. Mucosa dry. NECK: Supple. No JVD, no bruit. No lymphadenopathy. No thyromegaly. HEART: S1, S2 normal. No murmur. No cyanosis or clubbing. LUNGS: Decreased and basilar crackles right more than the left. Clear to auscultation. No rales or rhonchi. ABDOMEN: Soft, nontender. Distention is present. Bowel sounds are active. No CVA tenderness. No rigidity or guarding. Ascites is present. Shifting dullness is present. Fluid is present. EXTREMITIES: 2+ edema. No cyanosis or clubbing MUSCULOSKELETAL: Normal joints, no swelling. NEUROLOGIC: The patient is awake and alert. SKIN: Intact; no open lesions. LYMPHATIC: No lymph nodes palpable. LABS: WBC 2.44, hgb 9.5, hct 28.9,plt count 103, sodium 140, potassium 3.8, chloride 109, bicarb 26, BUN 15, creatinine 0.78, glucose 101. ASSESSMENT: 1. Right lower lobe pneumonia needing antibiotics 2. Ascites most likely with alcoholic liver cirrhosis 3. History of Hepatitis C 4. CAD 5. CHF 6. Status post bypass surgery 7. Lupus PLAN: 1. Admit the patient to the transitional care 2. Rocephin 1 gram daily 3. DUO NEBS 4. Spirolactone 5. Coreg 6. Lisinopril 7. Daily I&O's TIME SPENT: MORE THAN 75 minutes MTDD
[2018-01-19] MEDS: DUONEB NEB SCH ×3 (04:38→22:35)
[2018-01-19] MEDS: LASIX TAB PO SCH (05:54)
[2018-01-19] MEDS: PROTONIX PO SCH ×2 (05:54→18:41)
[2018-01-19] MEDS: ROCEPHIN 1 GM in SODIUM CHLORIDE 50 ML IV SCH ×2 (09:43→16:30)
[2018-01-19] MEDS: COREG PO SCH ×2 (09:44→18:41)
[2018-01-19] MEDS: THIAMINE IVP SCH (09:44)
[2018-01-19] MEDS: ALDACTONE PO SCH (09:44)
[2018-01-19] MEDS: MICRO-K CAP PO SCH ×2 (09:44→18:41)
--- NOTE | 2018-01-19 11:32 | OTPN ---
Subjective - Patient Information Date of Evaluation: 01/17/18 Date of Arrival on Unit: 01/16/18 Diagnosis: Muscle weakness Patient Reports/Comments: Occupational therapy discharging the self care goals. OT to continue with strengthening goals for BUE to carry out self care more safely. OT adding STG: Pt to increase BUE strength to 4+/5 for safety of self care management. and LTG: Pt to increase BUE strength to 5/5 for safety of self care management. Objective Objective: Pt is making progress toward his OT goals. Pt continues with milde edema of ankles and feet. Pt has distended abdomen. Short Term Goals - Goals GOAL 1: Pt to be Mod-I for donning LE dressing. Goal to be met by: 01/24/18 (d/c goal) Progress towards goal: Progressing GOAL 2: Pt to be (I) with sink level ADLS. Goal to be met by: 01/24/18 (d/c goal) Progress towards goal: Partially Met GOAL 3: Pt to increase activity tolerance for 15 minutes. Goal to be met by: 01/24/18 Progress towards goal: Met GOAL 4: Pt to increase BUE strength to 4+/5 for safety of self care management Goal to be met by: 01/24/18 Long-Term Goals GOAL 1: Pt to increase BUE strength to 5/5. Goal to be met by: 01/26/18 GOAL 2: Pt to be independent with all self care management. Goal to be met by: 01/26/18 (d/c) Progress towards goal: Progressing GOAL 3: Pt to increase activity tolerance for 20 minutes. Goal to be met by: 01/26/18 Progress towards goal: Regressing
--- NOTE | 2018-01-19 11:56 | PN ---
DATE OF SERVICE: 01/18/18 SUBJECTIVE: Urine output is good. Input is more than the output. Cough and congestion is present. Up and about walking some. REVIEW OF SYSTEMS: CONSTITUTIONAL: No fever, no chills. HEENT: Normal. ENDOCRINE: No weight gain, no weight loss. CVS: No angina symptoms. No CHF symptoms. No palpitations. No atypical chest pain for CAD. No shortness of breath. No PND, no orthopnea. RESPIRATORY: Cough, no hemoptysis. GI: No nausea, no vomiting. No abdominal pain. : No hematuria. No polyuria. MUSCULOSKELETAL: No joint swelling. PSYCHIATRIC: Not anxious. No depression. No suicidal thoughts. No homicidal thoughts. SKIN: Intact. No rash. PHYSICAL EXAMINATION: V/S: Blood pressure 115/71, respiratory rate 18, heart rate 80, temperature 98.6 and saturation is 96%. HEENT: Normocephalic, atraumatic. Mucosa dry. Pallor positive. No icterus. NECK: Supple. No JVD, no carotid bruit. No lymphadenopathy. LUNGS: Decreased and basilar crackles right more than the left. Clear to auscultation. No rales or rhonchi. HEART: S1, S2 normal. No S3. No murmur, gallop or regurgitation. ABDOMEN: Soft, nontender. Bowel sounds active. No rigidity. No rebound or guarding. No CVA tenderness. Shifting dullness present. Fluid 3 is present. EXTREMITIES: No cyanosis, clubbing. 2-3+ leg edema. Multiple excoriation is present and chronic dermatitis changes. MUSCULOSKELETAL: No joint swelling. NEUROLOGIC: Awake, alert, oriented times three. No focal deficit. LYMPHATIC: No lymph nodes palpable. SKIN: Intact. LABS: WBC 2.56, hgb 8.7, hct 25.4, plt count 104. Sodium 139, potassium 4.4, chloride 107, bicarb 24, BUN 18, creatinine 0.81, glucose 89. ASSESSMENT: 1. Acute on chronic heart failure 2. Right lower lobe pneumonia with pleural effusion 3. Ascites 4. Cirrhosis of the liver from the alcoholic cirrhosis 5. Hepatitis C positive 6. CAD 7. CABG 8. Anemia PLAN: 1. Continue Rocephin 1 gram daily 2. Breathing treatment 3. Spirolactone 4. Stop the IV fluids 5. Daily I&O's TIME SPENT: More than 35 minutes MTDD
--- NOTE | 2018-01-19 15:51 | DI ---
EXAM: Two views of the chest. History: Cough. Comparison: Chest radiograph 01/08/2018, chest CT 01/11/2018 Findings: Heart size is normal. Sternotomy wires. Atherosclerotic vascular calcifications. No pne umothorax. Small bilateral pleural effusions. Subsegmental atelectasis within the lung bases. No d efinite acute infiltrates. No acute osseous abnormalities. Artificial heart valve Impression: Small bilateral pleural effusions and bibasilar subsegmental atelectasis.
[2018-01-20] MEDS: DUONEB NEB SCH ×3 (05:35→21:43)
[2018-01-20] MEDS: LASIX TAB PO SCH (06:16)
[2018-01-20] MEDS: PROTONIX PO SCH ×2 (06:16→17:01)
[2018-01-20] MEDS: THIAMINE IVP SCH (08:04)
[2018-01-20] MEDS: ROCEPHIN 1 GM in SODIUM CHLORIDE 50 ML IV SCH (08:06)
[2018-01-20] MEDS: ALDACTONE PO SCH (08:06)
[2018-01-20] MEDS: COREG PO SCH ×2 (08:06→17:01)
[2018-01-20] MEDS: MICRO-K CAP PO SCH ×2 (08:06→17:01)
[2018-01-21] MEDS: DUONEB NEB SCH ×3 (05:25→22:00)
[2018-01-21] MEDS: PROTONIX PO SCH ×2 (06:00→17:04)
[2018-01-21] MEDS: LASIX TAB PO SCH (06:01)
[2018-01-21] MEDS: ROCEPHIN 1 GM in SODIUM CHLORIDE 50 ML IV SCH (08:27)
[2018-01-21] MEDS: COREG PO SCH ×2 (08:28→17:05)
[2018-01-21] MEDS: MICRO-K CAP PO SCH ×2 (08:28→17:05)
[2018-01-21] MEDS: ALDACTONE PO SCH (08:28)
[2018-01-21] MEDS: THIAMINE IVP SCH (08:30)
[2018-01-22] MEDS: DUONEB NEB SCH ×3 (04:45→22:05)
[2018-01-22] MEDS: LASIX TAB PO SCH (05:54)
[2018-01-22] MEDS: PROTONIX PO SCH ×2 (05:54→17:19)
[2018-01-22] MEDS: ROCEPHIN 1 GM in SODIUM CHLORIDE 50 ML IV SCH (08:13)
[2018-01-22] MEDS: THIAMINE IVP SCH (08:13)
[2018-01-22] MEDS: ALDACTONE PO SCH (08:13)
[2018-01-22] MEDS: COREG PO SCH ×2 (08:14→17:19)
[2018-01-22] MEDS: MICRO-K CAP PO SCH ×2 (08:14→17:19)
[2018-01-23] MEDS: DUONEB NEB SCH ×3 (04:35→20:57)
[2018-01-23] MEDS: LASIX TAB PO SCH (05:38)
[2018-01-23] MEDS: PROTONIX PO SCH ×2 (05:38→17:46)
[2018-01-23] MEDS: MICRO-K CAP PO SCH ×2 (08:48→17:46)
[2018-01-23] MEDS: THIAMINE IVP SCH (08:48)
[2018-01-23] MEDS: ALDACTONE PO SCH (08:48)
[2018-01-23] MEDS: COREG PO SCH ×2 (08:48→17:46)
[2018-01-23] MEDS: ROCEPHIN 1 GM in SODIUM CHLORIDE 50 ML IV SCH (08:48)
[2018-01-24] MEDS: DUONEB NEB SCH ×3 (04:48→22:50)
[2018-01-24] MEDS: PROTONIX PO SCH ×2 (06:11→17:08)
--- NOTE | 2018-01-24 09:05 | PN ---
DATE OF SERVICE: 01/23/18 SUBJECTIVE: The patient is having good urination. He is up and about walking some. He is still short of breath. Leg edema is present. Ascites is gradually getting better. REVIEW OF SYSTEMS: CONSTITUTIONAL: No fever, no chills. HEENT: Normal. ENDOCRINE: No weight gain, no weight loss. CVS: No angina symptoms. No CHF symptoms. No palpitations. No atypical chest pain for CAD. Shortness of breath. No PND, no orthopnea. RESPIRATORY: No cough, no hemoptysis. GI: No nausea, no vomiting. No abdominal pain. : No hematuria. No polyuria. MUSCULOSKELETAL: Leg edema is present. Ascites is better. No joint swelling. PSYCHIATRIC: Not anxious. No depression. No suicidal thoughts. No homicidal thoughts. SKIN: Intact. No rash. PHYSICAL EXAMINATION: V/S: BP 116/69, respiratory rate 20, heart rate 71, temperature 98.4, saturation 99. HEENT: Normocephalic, atraumatic. Mucosa dry. Pallor positive. No icterus. NECK: Supple. No JVD, no carotid bruit. No lymphadenopathy. LUNGS: Decreased basilar crackles. No rales or rhonchi. HEART: S1, S2 normal. No S3. No murmur, gallop or regurgitation. ABDOMEN: As discussed. Soft, nontender. Bowel sounds active. No rigidity. No rebound or guarding. No CVA tenderness. Abdominal ascites with fluid shifting, shifting dullness is present. EXTREMITIES: 2+ leg edema. No cyanosis, clubbing, MUSCULOSKELETAL: No joint swelling. NEUROLOGIC: Awake, alert, oriented times three. No focal deficit. LYMPHATIC: No lymph nodes palpable. SKIN: Intact. LABS: White count 2.85, hemoglobin 8.3, hematocrit 24.3, platelet count 106. Sodium 138, potassium 4.2, chloride 103, bicarb 25, BUN 19, creatinine 0.91, glucose 88. ASSESSMENT: 1. ABDOMINAL ASCITES 2. HEPATITIS C 3. LIVER CIRRHOSIS, ALCOHOLIC 4. CAD 5. CHF 6. RIGHT LOWER LOBE PNEUMONIA 7. DEPENDENT LEG EDEMA PLAN: 1. Evaluation for GI consultation 2. Evaluation for outpatient paracentesis at [facility] 3. Continue Spironolactone and Lasix 4. Daily I & O 5. No salt diet TIME SPENT: More than 35 minutes MTDD
--- NOTE | 2018-01-24 09:06 | PN ---
DATE OF SERVICE: 01/19/18 SUBJECTIVE: The patient is getting IV antibiotics for the right lower lobe pneumonia and ascites is gradually getting better. Getting out of the bed and walking some otherwise no chest pain. REVIEW OF SYSTEMS: CONSTITUTIONAL: No fever, no chills. HEENT: Normal. ENDOCRINE: No weight gain, no weight loss. CVS: No angina symptoms. No CHF symptoms. No palpitations. No atypical chest pain for CAD. Shortness of breath. No PND, no orthopnea. RESPIRATORY: No cough, no hemoptysis. GI: No nausea, no vomiting. No abdominal pain. : No hematuria. No polyuria. MUSCULOSKELETAL: No joint swelling. PSYCHIATRIC: Not anxious. No depression. No suicidal thoughts. No homicidal thoughts. SKIN: Intact. No rash. PHYSICAL EXAMINATION: V/S: Blood pressure 110/72, respiratory rate 16, heart rate 80, temperature 98.9 with saturation 98%. HEENT: Normocephalic, atraumatic. Mucosa dry. Pallor positive. No icterus. NECK: Supple. No JVD, no carotid bruit. No lymphadenopathy. LUNGS: Decreased and basilar crackles. Clear to auscultation. No rales or rhonchi. HEART: S1, S2 normal. No S3. No murmur, gallop or regurgitation. ABDOMEN: Soft, nontender. Bowel sounds active. No rigidity. No rebound or guarding. No CVA tenderness. Distention present. Shifting dullness is present. No tenderness. EXTREMITIES: No cyanosis, clubbing. 2+ edema. MUSCULOSKELETAL: No joint swelling. NEUROLOGIC: Awake, alert, oriented times three. No focal deficit. LYMPHATIC: No lymph nodes palpable. SKIN: Intact. LABS: WBC 2.45, hgb 8.4, hct 24.4, plt count 96, sodium 137, potassium 3.9, chloride 104, bicarb 25, BUN 16, creatinine 0.89 and glucose 118. ASSESSMENT: 1. Right lower lobe pneumonia 2. Pleural effusion 3. Ascites, cirrhosis related 4. Bilateral lower extremity edema 5. CAD 6. CHF 7. Hypertension PLAN: 1. Continue the Rocephin 1 gram daily 2. IV fluids 3. Keep the legs elevated 4. I&O's 5. Continue the Spirolactone 6. Daily I&O's TIME SPENT: More than 35 minutes MTDD
--- NOTE | 2018-01-24 09:11 | PN ---
DATE OF SERVICE: 01/20/18 SUBJECTIVE: The patient is laying in the bed, walking the room. Says that he gets a little short of breath with exertion. REVIEW OF SYSTEMS: CONSTITUTIONAL: No fever, no chills. HEENT: Normal. ENDOCRINE: No weight gain, no weight loss. CVS: No angina symptoms. No CHF symptoms. No palpitations. No atypical chest pain for CAD. No shortness of breath. No PND, no orthopnea. RESPIRATORY: No cough, no hemoptysis. GI: No nausea, no vomiting. No abdominal pain. : No hematuria. No polyuria. MUSCULOSKELETAL: No joint swelling. PSYCHIATRIC: Not anxious. No depression. No suicidal thoughts. No homicidal thoughts. SKIN: Intact. No rash. PHYSICAL EXAMINATION: V/S: Blood pressure 105/61, respiratory rate 16, heart rate 72, temperature 98.9 with saturation 100%. HEENT: Normocephalic, atraumatic. Mucosa dry. Pallor positive. NECK: Supple. No JVD, no carotid bruit. No lymphadenopathy. LUNGS: Decreased and basilar crackles Clear to auscultation. No rales or rhonchi. HEART: S1, S2 normal. No S3. No murmur, gallop or regurgitation. ABDOMEN: Soft, nontender. Bowel sounds sluggish. No rigidity. No rebound or guarding. No CVA tenderness. Distention present. Shift dullness present. EXTREMITIES: No cyanosis, clubbing. 2+ leg edema. MUSCULOSKELETAL: No joint swelling. NEUROLOGIC: Awake, alert, oriented times three. No focal deficit. LYMPHATIC: No lymph nodes palpable. SKIN: Intact. LABS: Sodium 137, potassium 4.1, chloride 105, bicarb 24, BUN 16, creatinine 0.79, glucose 94, WBC 4.77, hgb 7.9, hct 33.3, plt count 189. ASSESSMENT: 1. Right sided pneumonia 2. Pleural effusion 3. Ascites, cirrhosis 4. CAD 5. CHF 6. Bypass surgery 7. Dependant leg edema 8. Hypertension 9. Dyslipidemia PLAN: 1. Continue Rocephin 1 gram daily 2. Breathing treatment 3. Daily I&O's 4. Spirolactone. TIME SPENT: More than 35 minutes MTDD
[2018-01-24] MEDS: COREG PO SCH ×2 (10:01→17:08)
[2018-01-24] MEDS: MICRO-K CAP PO SCH ×2 (10:01→17:08)
[2018-01-24] MEDS: LASIX TAB PO SCH (10:01)
[2018-01-24] MEDS: ALDACTONE PO SCH (10:01)
[2018-01-24] MEDS: THIAMINE IVP SCH (10:02)
[2018-01-24] MEDS: ROCEPHIN 1 GM in SODIUM CHLORIDE 50 ML IV SCH (10:02)
--- NOTE | 2018-01-24 13:21 | PN ---
DATE OF SERVICE: 01/22/18 SUBJECTIVE: The patient is admitted with acute and chronic heart failure, ascites. Fluid drainage is done. Most likely the ascites is from cirrhosis of the liver. The patient has history of hepatitis C. REVIEW OF SYSTEMS: CONSTITUTIONAL: No fever, no chills. HEENT: Normal. ENDOCRINE: No weight gain, no weight loss. CVS: No angina symptoms. No CHF symptoms. No palpitations. No atypical chest pain for CAD. No shortness of breath. No PND, no orthopnea. RESPIRATORY: No cough, no hemoptysis. GI: No nausea, no vomiting. No abdominal pain. : No hematuria. No polyuria. MUSCULOSKELETAL: No joint swelling. PSYCHIATRIC: Not anxious. No depression. No suicidal thoughts. No homicidal thoughts. SKIN: Intact. No rash. PHYSICAL EXAMINATION: V/S: BP 116/69, respiratory rate 20, heart rate 71, temperature 98.4, saturation 91. HEENT: Normocephalic, atraumatic. Mucosa dry. Pallor positive. No icterus. NECK: Supple. No JVD, no carotid bruit. No lymphadenopathy. LUNGS: Basilar crackles. No rales or rhonchi. HEART: S1, S2 normal. No S3. No murmur, gallop or regurgitation. ABDOMEN: Distention is present. Soft, nontender. Bowel sounds are sluggish, fluids shift is present. Shifting dullness is present. No rigidity. No rebound or guarding. No CVA tenderness. EXTREMITIES: 2+ edema. No cyanosis, clubbing. MUSCULOSKELETAL: No joint swelling. NEUROLOGIC: Awake, alert, oriented times three. No focal deficit. LYMPHATIC: No lymph nodes palpable. SKIN: Intact. LABS: White count 2.71, hemoglobin 8.0, hematocrit 3.2, platelet count 99. Sodium 157 , potassium 4.3, chloride 106, bicarb 24, BUN 16, creatinine 0.80, glucose 93. ASSESSMENT: 1. RIGHT BASILAR PNEUMONIA 2. ASCITES 3. HEPATITIS C 4. LIVER CIRRHOSIS 5. CAD 6. CHF 7. BYPASS SURGERY 8. HYPERTENSION 9. RIGHT-SIDED LOWER LOBE PNEUMONIA NEEDING IV ANTIBIOTICS PLAN: 1. Physical Therapy 2. Rocephin 1 gm daily 3. Spironalactone 4. Daily I & O's TIME SPENT: More than 35 minutes MTDD
--- NOTE | 2018-01-24 14:51 | PN ---
DATE OF SERVICE: 01/21/18 SUBJECTIVE: The patient is up and about walking a little bit, having good urine output and getting IV antibiotics for the right lower lobe pneumonia. Chest x-ray showed the persistent pneumonia and left pleural effusion. REVIEW OF SYSTEMS: CONSTITUTIONAL: No fever, no chills. HEENT: Normal. ENDOCRINE: No weight gain, no weight loss. CVS: No angina symptoms. No CHF symptoms. No palpitations. No atypical chest pain for CAD. No shortness of breath. No PND, no orthopnea. RESPIRATORY: No cough, no hemoptysis. GI: No nausea, no vomiting. No abdominal pain. : No hematuria. No polyuria. MUSCULOSKELETAL: No joint swelling. PSYCHIATRIC: Not anxious. No depression. No suicidal thoughts. No homicidal thoughts. SKIN: Intact. No rash. PHYSICAL EXAMINATION: V/S: Blood pressure 118/73, respiratory rate 14, heart rate 74, temperature 99.3 with saturation 100%. HEENT: Normocephalic, atraumatic. Mucosa dry. Pallor positive. No icterus. NECK: Supple. No JVD, no carotid bruit. No lymphadenopathy. LUNGS: Decreased and basilar crackles. Clear to auscultation. No rales or rhonchi. HEART: S1, S2 normal. No S3. No murmur, gallop or regurgitation. ABDOMEN: Soft, nontender. Bowel sounds active. No rigidity. No rebound or guarding. No CVA tenderness. Ascites is present. Fluid shift is present. Shifting dullness is present. EXTREMITIES: No cyanosis, clubbing. 2+ edema. MUSCULOSKELETAL: No joint swelling. NEUROLOGIC: Awake, alert, oriented times three. No focal deficit. LYMPHATIC: No lymph nodes palpable. SKIN: Intact. LABS: WBC 2.62, hgb 7.9, hct 20.3, plt count 100, sodium 137, potassium 4.1, chloride 105, bicarb 24, BUN 16, creatinine 0.79 and glucose 94. Stool for occult blood test is positive. ASSESSMENT: 1. Anemia with positive occult blood test 2. Hepatitis C 3. Cirrhosis of the liver 4. Right lower lobe pneumonia 5. CAD 6. CHF 7. Dependant leg edema PLAN: 1. Continue Spirolactone 2. Rocephin 3. Daily I&O 4. Out of bed to chair 5. Activity as tolerated 6. Keep the legs elevated when resting TIME SPENT: More than 35 minutes MTDD
[2018-01-25] MEDS: DUONEB NEB SCH ×3 (04:44→22:00)
[2018-01-25] MEDS: LASIX TAB PO SCH (06:06)
[2018-01-25] MEDS: PROTONIX PO SCH ×2 (06:06→16:55)
[2018-01-25] MEDS: ALDACTONE PO SCH (08:26)
[2018-01-25] MEDS: COREG PO SCH ×2 (08:26→16:55)
[2018-01-25] MEDS: ROCEPHIN 1 GM in SODIUM CHLORIDE 50 ML IV SCH (08:26)
[2018-01-25] MEDS: THIAMINE IVP SCH (08:26)
[2018-01-25] MEDS: MICRO-K CAP PO SCH ×2 (08:26→16:55)
[2018-01-26] MEDS: DUONEB NEB SCH ×3 (04:48→21:26)
[2018-01-26] MEDS: PROTONIX PO SCH ×2 (05:37→16:53)
[2018-01-26] MEDS: LASIX TAB PO SCH (05:37)
[2018-01-26] MEDS: ALDACTONE PO SCH (08:31)
[2018-01-26] MEDS: COREG PO SCH ×2 (08:31→16:53)
[2018-01-26] MEDS: MICRO-K CAP PO SCH ×2 (08:32→16:53)
[2018-01-26] MEDS: ROCEPHIN 1 GM in SODIUM CHLORIDE 50 ML IV SCH (08:32)
[2018-01-26] MEDS: THIAMINE IVP SCH (09:29)
--- NOTE | 2018-01-26 11:58 | PN ---
DATE OF SERVICE: 01/25/18 SUBJECTIVE: The patient is admitted with pneumonia, CHF. The patient is receiving IV antibiotics. The patient had therapeutic drainage from paracentesis yesterday. He is feeling a lot better, walking better. REVIEW OF SYSTEMS: CONSTITUTIONAL: No fever, no chills. HEENT: Normal. ENDOCRINE: No weight gain, no weight loss. CVS: No angina symptoms. No CHF symptoms. No palpitations. No atypical chest pain for CAD. No shortness of breath. No PND, no orthopnea. RESPIRATORY: No cough, no hemoptysis. GI: No nausea, no vomiting. No abdominal pain. : No hematuria. No polyuria. MUSCULOSKELETAL: No joint swelling. PSYCHIATRIC: Not anxious. No depression. No suicidal thoughts. No homicidal thoughts. SKIN: Intact. No rash. PHYSICAL EXAMINATION: V/S: BP 99/62, respiratory rate 16, heart rate 76, temperature 98.3, saturation 98. HEENT: Normocephalic, atraumatic. Mucosa dry. Pallor positive. No icterus. NECK: Supple. No JVD, no carotid bruit. No lymphadenopathy. LUNGS: Decreased basilar crackles. Clear to auscultation. No rales or rhonchi. HEART: S1, S2 normal. No S3. No murmur, gallop or regurgitation. ABDOMEN: Distention is present. Fluid shifting is present, shifting dullness is present. EXTREMITIES: 2+ edema. No cyanosis or clubbing. MUSCULOSKELETAL: No joint swelling. NEUROLOGIC: Awake, alert, oriented times three. No focal deficit. LYMPHATIC: No lymph nodes palpable. SKIN: Intact. LABS: White count 2.22, hemoglobin 8.6, hematocrit 25.6, platelet count 102. Sodium 138, potassium 4.4, chloride 104, bicarb 25, BUN 19, creatinine 0.97, glucose 127. ASSESSMENT: 1. RIGHT LOWER LOBE PNEUMONIA 2. ACUTE ON CHRONIC HEART FAILURE 3. CAD 4. BYPASS SURGERY 5. HYPERTENSION 6. HEPATITIS C PLAN: 1. Continue Rocephin 2. Breathing treatment 3. Duonebs 4. Daily I & O's TIME SPENT: More than 35 minutes MTDD
--- NOTE | 2018-01-26 12:34 | PN ---
DATE OF SERVICE: 01/24/18 SUBJECTIVE: The patient is being scheduled for outpatient paracentesis at [facility]. The patient says that he is a little bit nervous. REVIEW OF SYSTEMS: CONSTITUTIONAL: No fever, no chills. HEENT: Normal. ENDOCRINE: No weight gain, no weight loss. CVS: No angina symptoms. No CHF symptoms. No palpitations. No atypical chest pain for CAD. Shortness of breath with minimal exertion. No PND, no orthopnea. RESPIRATORY: Cough and congestion, no hemoptysis. GI: No nausea, no vomiting. No abdominal pain. : No hematuria. No polyuria. MUSCULOSKELETAL: No joint swelling. PSYCHIATRIC: Not anxious. No depression. No suicidal thoughts. No homicidal thoughts. SKIN: Intact. No rash. PHYSICAL EXAMINATION: V/S: Blood pressure 105/61, respiratory rate 20, heart rate 82, temperature 91.1 , saturation 95 on room air. HEENT: Normocephalic, atraumatic. Mucosa dry. Pallor positive. No icterus. NECK: Supple. No JVD, no carotid bruit. No lymphadenopathy. LUNGS: Decreased basilar crackles. No rales or rhonchi. HEART: S1, S2 normal. No S3. No murmur, gallop or regurgitation. ABDOMEN: Distention present with shift in the left present. Fluid still is present. Bowel sounds active. No rigidity. No rebound or guarding. No CVA tenderness. EXTREMITIES: 2+ edema. MUSCULOSKELETAL: No joint swelling. NEUROLOGIC: Awake, alert, oriented times three. No focal deficit. LYMPHATIC: No lymph nodes palpable. SKIN: Intact. LABS: White count is 2.85, hemoglobin 8.3, hematocrit 24.3, platelet count 104, sodium 138, potassium 4.2, chloride 103, bicarb 25, BUN 19, creatinine 0.91, glucose 88. ASSESSMENT: 1. RIGHT LOWER LOBE PNEUMONIA 2. ASCITES MOST LIKELY FROM THE CIRRHOSIS WITH ALCOHOLIC LIVER CIRRHOSIS 3. HISTORY OF HEPATITIS C 4. CORONARY ARTERY DISEASE, BYPASS SURGERY 5. CONGESTIVE HEART FAILURE 6. MEDICATION NONCOMPLIANCE PLAN: 1. Outpatient paracentesis at [facility]. Reassured the patient. 2. Continue IV antibiotics of Rocephin. 3. Breathing treatments. 4. Daily I & O's. 5. Keep the legs elevated when resting. TIME SPENT: More than 35 minutes MTDD
[2018-01-27] MEDS: DUONEB NEB SCH ×3 (04:55→21:50)
[2018-01-27] MEDS: LASIX TAB PO SCH (06:07)
[2018-01-27] MEDS: PROTONIX PO SCH ×2 (06:07→16:47)
[2018-01-27] MEDS: ROCEPHIN 1 GM in SODIUM CHLORIDE 50 ML IV SCH (08:26)
[2018-01-27] MEDS: ALDACTONE PO SCH (08:28)
[2018-01-27] MEDS: COREG PO SCH ×2 (08:29→16:47)
[2018-01-27] MEDS: MICRO-K CAP PO SCH ×2 (08:29→16:47)
[2018-01-27] MEDS: THIAMINE IVP SCH (09:04)
[2018-01-28] MEDS: DUONEB NEB SCH ×3 (04:34→20:50)
[2018-01-28] MEDS: PROTONIX PO SCH ×2 (05:31→17:03)
[2018-01-28] MEDS: LASIX TAB PO SCH (05:31)
[2018-01-28] MEDS: ALDACTONE PO SCH (08:00)
[2018-01-28] MEDS: COREG PO SCH ×2 (08:00→17:03)
[2018-01-28] MEDS: ROCEPHIN 1 GM in SODIUM CHLORIDE 50 ML IV SCH (08:00)
[2018-01-28] MEDS: MICRO-K CAP PO SCH ×2 (08:00→17:03)
[2018-01-28] MEDS: THIAMINE IVP SCH (08:01)
[2018-01-29] MEDS: DUONEB NEB SCH ×3 (04:48→22:45)
[2018-01-29] MEDS: LASIX TAB PO SCH (05:36)
[2018-01-29] MEDS: PROTONIX PO SCH ×2 (05:36→16:38)
[2018-01-29] MEDS: ROCEPHIN 1 GM in SODIUM CHLORIDE 50 ML IV SCH (08:43)
[2018-01-29] MEDS: MICRO-K CAP PO SCH ×2 (08:46→16:39)
[2018-01-29] MEDS: ALDACTONE PO SCH (08:46)
[2018-01-29] MEDS: COREG PO SCH ×2 (08:46→16:39)
[2018-01-29] MEDS: THIAMINE IVP SCH (09:05)
--- NOTE | 2018-01-29 13:26 | PN ---
DATE OF SERVICE: 01/28/18 SUBJECTIVE: Weight has been getting better, he is losing a lot weight. When initially admitted was 182 pounds right now the weight is 154. Swelling in the legs is better and stomach swelling and distention is also better. REVIEW OF SYSTEMS: CONSTITUTIONAL: No fever, no chills. HEENT: Normal. ENDOCRINE: No weight gain, no weight loss. CVS: No angina symptoms. No CHF symptoms. No palpitations. No atypical chest pain for CAD. No shortness of breath. No PND, no orthopnea. RESPIRATORY: No cough, no hemoptysis. GI: No nausea, no vomiting. No abdominal pain. : No hematuria. No polyuria. MUSCULOSKELETAL: No joint swelling. PSYCHIATRIC: Not anxious. No depression. No suicidal thoughts. No homicidal thoughts. SKIN: Intact. No rash. PHYSICAL EXAMINATION: V/S: Blood pressure 119/76. respiratory rate 18, heart rate 75, temperature 99 and saturation 100% HEENT: Normocephalic, atraumatic. Mucosa dry. Pallor positive. No icterus. NECK: Supple. No JVD, no carotid bruit. No lymphadenopathy. LUNGS: Decreased and basilar crackles. No rales or rhonchi. HEART: S1, S2 normal. No S3. No murmur, gallop or regurgitation. ABDOMEN:Distention present. Shift dullness is present. Fluid is present. Soft, nontender. Bowel sounds active. No rigidity. No rebound or guarding. No CVA tenderness. EXTREMITIES: No cyanosis, clubbing. 1+ edema, mostly she can feel the chatterjee of the tibia on the both legs which were we were having with this patient so far. MUSCULOSKELETAL: No joint swelling. NEUROLOGIC: Awake, alert, oriented times three. No focal deficit. LYMPHATIC: No lymph nodes palpable. SKIN: Intact. LABS: WBC 2.01, hgb 8.1, hct 23.8, plt count 98, sodium 137, potassium 4.1, chloride 105, bicarb 25, BUN 25, creatinine 0.96 and glucose 101. ASSESSMENT: 1. Right lower lobe pneumonia 2. Ascites versus cirrhosis most likely from the alcohol 3. Hepatitis C 4. CAD 5. Bypass surgery 6. CHF PLAN: 1. Continue Rocephin 2. Breathing treatment 3. Lasix 4. Spirolactone 5. Daily I&O's TIME SPENT: More than 35 minutes MTDD
--- NOTE | 2018-01-29 13:56 | PN ---
DATE OF SERVICE: 01/26/18 SUBJECTIVE: The patient is up and about. Distention in the abdomen is better, more active. Still coughing and congestion not able to get some phlegm. Shortness of breath with minimal exertion. REVIEW OF SYSTEMS: CONSTITUTIONAL: No fever, no chills. HEENT: Normal. ENDOCRINE: No weight gain, no weight loss. CVS: No angina symptoms. No CHF symptoms. No palpitations. No atypical chest pain for CAD. No shortness of breath. No PND, no orthopnea. RESPIRATORY: No cough, no hemoptysis. GI: No nausea, no vomiting. No abdominal pain. : No hematuria. No polyuria. MUSCULOSKELETAL: No joint swelling. PSYCHIATRIC: Not anxious. No depression. No suicidal thoughts. No homicidal thoughts. SKIN: Intact. No rash. PHYSICAL EXAMINATION: V/S: blood pressure 101/61, respiratory rate 16, heart rate 74, temperature 99.3. HEENT: Normocephalic, atraumatic. Mucosa dry. Pallor positive. No icterus. NECK: Supple. No JVD, no carotid bruit. No lymphadenopathy. LUNGS: Decreased and basilar crackles. Clear to auscultation. No rales or rhonchi. HEART: S1, S2 normal. No S3. No murmur, gallop or regurgitation. ABDOMEN: Ascites is seen. Shifting dullness and fluid shift is seen. Soft, nontender. Bowel sounds active. No rigidity. No rebound or guarding. No CVA tenderness. EXTREMITIES: No cyanosis, clubbing. 2+ leg edema. MUSCULOSKELETAL: No joint swelling. NEUROLOGIC: Awake, alert, oriented times three. No focal deficit. LYMPHATIC: No lymph nodes palpable. SKIN: Intact. LABS: WBC 2.22, hgb 8.6, hct 25.6, plt count 102, sodium 138, potassium 4.4, chloride 104, bicarb 25, BUN 19, creatinine 0.97 and glucose 127 ASSESSMENT: 1. Right lower lobe pneumonia 2. Acute on chronic heart failure 3. Cirrhosis most likely from the alcoholic liver cirrhosis 4. Hepatitis C positive 5. Anemia 6. Pancytopenia 7. Dependant leg edema 8. CAD bypass surgery PLAN: 1. Continue Rocephin 1 gram daily 2. DUO NEBS 3. Daily I&O's 4. Fluid restriction TIME SPENT: More than 35 minutes MTDD
--- NOTE | 2018-01-29 14:22 | PN ---
DATE OF SERVICE: 01/27/18 SUBJECTIVE: The patient was initially admitted with heart failure then the patient found to have liver cirrhosis and ascites. The patient did have therapeutic and diagnostic paracentesis with the therapeutic paracentesis the belly size is decreased tremendously. Feeling better. Up and about walking more better now. Refused to go to the halfway care. The patient definitely needs more care then what he was getting at home. REVIEW OF SYSTEMS: CONSTITUTIONAL: No fever, no chills. HEENT: Normal. ENDOCRINE: No weight gain, no weight loss. CVS: No angina symptoms. No CHF symptoms. No palpitations. No atypical chest pain for CAD. No shortness of breath. No PND, no orthopnea. RESPIRATORY: No cough, no hemoptysis. GI: No nausea, no vomiting. No abdominal pain. : No hematuria. No polyuria. MUSCULOSKELETAL: No joint swelling. PSYCHIATRIC: Not anxious. No depression. No suicidal thoughts. No homicidal thoughts. SKIN: Intact. No rash. PHYSICAL EXAMINATION: V/S: blood pressure 108/62, respiratory rate 16, heart rate 72, temperature 98.8 with saturation 100% on room air. HEENT: Normocephalic, atraumatic. Mucosa dry. Pallor positive. No icterus. NECK: Supple. No JVD, no carotid bruit. No lymphadenopathy. LUNGS: Decreased and basilar crackles. Clear to auscultation. No rales or rhonchi. HEART: S1, S2 normal. No S3. No murmur, gallop or regurgitation. ABDOMEN: Soft, nontender. Shifting dullness if present. Fluid is present. Bowel sounds active. No rigidity. No rebound or guarding. No CVA tenderness. EXTREMITIES: No cyanosis, clubbing .1+ edema. MUSCULOSKELETAL: No joint swelling. NEUROLOGIC: Awake, alert, oriented times three. No focal deficit. LYMPHATIC: No lymph nodes palpable. SKIN: Intact. LABS: WBC 1.73, hgb 8.6, hct 25.2, plt count 98, sodium 137, potassium 4.8, chloride 104, bicarb 26, BUN 23, creatinine 1.01, glucose 92. ASSESSMENT: 1. Liver cirrhosis most likely alcoholic liver cirrhosis 2. Right lower lobe pneumonia 3. Acute on chronic heart failure 4. CAD, CABG 5. Hepatitis C positive 6. Anemia, positive occult blood test PLAN: 1. Continue Rocephin 2. Lasix 3. Spirolactone 4. Fluid restriction 5. Keep the legs elevated. TIME SPENT: More than 35 minutes MTDD
[2018-01-29] MEDS: KEFLEX PO SCH (20:17)
[2018-01-30] MEDS: DUONEB NEB SCH ×3 (05:15→22:50)
[2018-01-30] MEDS: PROTONIX PO SCH ×2 (05:53→16:32)
[2018-01-30] MEDS: LASIX TAB PO SCH (05:54)
[2018-01-30] MEDS: MICRO-K CAP PO SCH ×2 (08:36→16:32)
[2018-01-30] MEDS: KEFLEX PO SCH ×2 (08:36→20:45)
[2018-01-30] MEDS: COREG PO SCH ×2 (08:36→16:31)
[2018-01-30] MEDS: ALDACTONE PO SCH (08:36)
[2018-01-30] MEDS: THIAMINE IVP SCH (08:37)
--- NOTE | 2018-01-30 10:40 | PN ---
DATE OF SERVICE: 01/29/18 SUBJECTIVE: The patient is laying in the bed and feeling a lot better. No leg edema. REVIEW OF SYSTEMS: CONSTITUTIONAL: No fever, no chills. HEENT: Normal. ENDOCRINE: No weight gain, no weight loss. CVS: No angina symptoms. No CHF symptoms. No palpitations. No atypical chest pain for CAD. No shortness of breath. No PND, no orthopnea. RESPIRATORY: No cough, no hemoptysis. GI: No nausea, no vomiting. No abdominal pain. : No hematuria. No polyuria. MUSCULOSKELETAL: No joint swelling. PSYCHIATRIC: Not anxious. No depression. No suicidal thoughts. No homicidal thoughts. SKIN: Intact. No rash. PHYSICAL EXAMINATION: V/S: Blood pressure 106/65, respiratory rate 16, heart rate 81, temperature 97.8 , saturation 100%. HEENT: Normocephalic, atraumatic. Mucosa dry. Pallor positive. No icterus. NECK: Supple. No JVD, no carotid bruit. No lymphadenopathy. LUNGS: Decreased and basilar crackles. No rales or rhonchi. HEART: S1, S2 normal. No S3. No murmur, gallop or regurgitation. ABDOMEN: Distention is present. Shifting dullness is present. Fluid still is present. Soft, nontender. Bowel sounds active. No rigidity. No rebound or guarding. No CVA tenderness. EXTREMITIES: No cyanosis, clubbing. Leg edema is a lot improved. MUSCULOSKELETAL: No joint swelling. NEUROLOGIC: Awake, alert, oriented times three. No focal deficit. LYMPHATIC: No lymph nodes palpable. SKIN: Intact. LABS: WBC 2.30, hgb 8.1, hct 24.0, plt count 100, sodium 139, potassium 4.1, chloride 106, bicarb 26, BUN 29, creatinine 1.10 and glucose 103 ASSESSMENT: 1. Right lower lobe pneumonia 2. Acute on chronic heart failure 3. Ascites 4. Status post therapeutic and diagnostic paracentesis 5. CAD 6. CHF 7. Bypass surgery 8. Noncompliance PLAN: 1. Stop the Rocephin 2. Start the antibiotic Keflex 3. Out of bed to chair activity as tolerated 4. Breathing treatment 5. Daily I&O's TIME SPENT: More than 35 minutes MTDD
[2018-01-30 16:50] VITALS: BP 107/69; TEMP 97.9
[2018-01-31] MEDS: DUONEB NEB SCH (05:13)
[2018-01-31] MEDS: PROTONIX PO SCH (05:38)
[2018-01-31] MEDS: LASIX TAB PO SCH (05:39)
[2018-01-31] MEDS: ALDACTONE PO SCH (08:52)
[2018-01-31] MEDS: MICRO-K CAP PO SCH (08:52)
[2018-01-31] MEDS: KEFLEX PO SCH (08:52)
[2018-01-31] MEDS: THIAMINE IVP SCH (08:52)
[2018-01-31] MEDS: COREG PO SCH (08:52)
--- NOTE | 2018-01-31 08:55 | PN ---
DATE OF SERVICE: 01/30/18 SUBJECTIVE: The patient is up and about walking some. Coughing and congestion is improved. REVIEW OF SYSTEMS: CONSTITUTIONAL: No fever, no chills. HEENT: Normal. ENDOCRINE: No weight gain, no weight loss. CVS: No angina symptoms. No CHF symptoms. No palpitations. No atypical chest pain for CAD. No shortness of breath. No PND, no orthopnea. RESPIRATORY: Cough is better, no hemoptysis. GI: No nausea, no vomiting. No abdominal pain. : No hematuria. No polyuria. MUSCULOSKELETAL: No joint swelling. PSYCHIATRIC: Not anxious. No depression. No suicidal thoughts. No homicidal thoughts. SKIN: Intact. No rash. PHYSICAL EXAMINATION: V/S: Blood pressure 106/65, respiratory rate 16, heart rate 81, temperature 97.8 and saturation is 100%. HEENT: Normocephalic, atraumatic. Mucosa dry. Pallor positive. No icterus. NECK: Supple. No JVD, no carotid bruit. No lymphadenopathy. LUNGS:Decreased with some basilar crackles. Clear to auscultation. No rales or rhonchi. HEART: S1, S2 normal. No S3. No murmur, gallop or regurgitation. ABDOMEN: Distention positive. Fluid positive. Soft, nontender. Bowel sounds active. No rigidity. No rebound or guarding. No CVA tenderness. Shifting dullness is positive. EXTREMITIES: No cyanosis, clubbing or pedal edema. MUSCULOSKELETAL: No joint swelling. NEUROLOGIC: Awake, alert, oriented times three. No focal deficit. LYMPHATIC: No lymph nodes palpable. SKIN: Intact. LABS: WBC 2.05, hgb 8.2, hct 23.8, plt count 98, sodium 139, potassium 4.2, chloride 107, bicarb 25, BUN 25, creatinine 0.83 and glucose 100. ASSESSMENT: 1. Right lower lobe pneumonia 2. Ascites 3. Hepatitis C 4. Liver cirrhosis 5. CAD, bypass surgery 6. CHF 7. Noncompliance 8. Dependant leg edema PLAN: 1. Keflex 500mg twice a day 2. Prednisone twice a day 3. Out of bed to chair activity as tolerated 4. Most likely will be discharged in the morning. TIME SPENT: More than 35 minutes MTDD
--- NOTE | 2018-02-20 11:46 | DS ---
DATE OF SERVICE: 01/31/18 FINAL DIAGNOSIS: 1. BIBASILAR PNEUMONIA/ATELECTASIS 2. HEPATITIS C POSITIVE 3. ACUTE AND CHRONIC SYSTOLIC CONGESTIVE HEART FAILURE 4. ABDOMINAL AND PELVIC ASCITES 5. STATUS POST THERAPEUTIC AND DIAGNOSTIC PARACENTESIS 6. BILATERAL LEG EDEMA 7. LEFT CALF PAIN NEGATIVE FOR DVT 8. CAD WITH HISTORY OF PA 9. DEPRESSION 10. LUPUS 11. FORMER SMOKER 12. NONCOMPLIANCE 13. ALCOHOL USE 14. CHOLECYSTECTOMY 15. CABG 2010 DISCHARGE INSTRUCTIONS: 1. Followup in the [facility] on 02/07/18. 2. Please weigh yourself daily; if more than 5 lbs weight gain, need to call the office. 3. Followup with Dr. Kamran Espinoza, Infectious disease doctor. MEDICATIONS AT DISCHARGE: Aspirin Lasix Potassium Chloride Coreg NEW PRESCRIPTIONS: Protonix 40 mg p.o. daily Potassium 10 mEq p.o. daily Spironolactone 50 mg p.o. daily Librium 10 mg twice a day DIET INSTRUCTIONS: Cardiac and Healthy; no salt diet ACTIVITY: As much as tolerated DISEASE SPECIFIC EDUCATION: CHF, no salt diet and fluid overload has been discussed. Hepatitis C and risk of communicability to others have been discussed, verbalized understanding. HOSPITAL COURSE: This patient was initially admitted through the office to the hospital for acute and chronic systolic heart failure, ascites and leg edema. CT abdomen showed ascites. The patient was started on Lasix. With the given history of poor ejection fraction, the patient was started on Spironolactone. The patient was noncompliant with the medication and the family and friends did come and tell us that the patient has a problem with alcohol. CT abdomen and pelvis showed cirrhotic appearance of the liver. We did do some therapeutic paracentesis which did not contribute to any kind of particular disease. Hepatitis profile done which did show hepatitis C positive. Hemoglobin and hematocrit have been stable, 8.6, 8.1 and 8.3. BUN and creatinine did not change. Albumin was very low 2.4, 2.3. Stool for occult blood was positive. Antibiotics were given for the bibasilar infiltrates and pneumonia with breathing treatment. Leg edema and ascites was getting better. The patient was transferred to [facility] [place] for therapeutic paracentesis which he did tolerate well. Kidney function was steady, did not drop any kidney function after the procedure. As the patient was doing well, up and about walking, leg edema almost resolved and the patient doing well with Spironolactone and potassium at this time the patient is being discharged home. TIME SPENT: MORE THAN 65 MINUTES MTDBay
== END 2018-01-31 14:25 | disposition home or self-care (01) | DRG 205 ==
LOC: MEDSURG B 13:15
PROVIDERS: ADMIT Emergency Medicine; ATTEND Emergency Medicine
PROC: 0W9G30Z Drainage of Peritoneal Cavity with Drainage Device, Percutaneous Approach (ICD-10-PCS; principal; 2018-01-24)
DX: J98.11 Atelectasis (principal); I50.23 Acute on chronic systolic (congestive) heart failure; J90 Pleural effusion, not elsewhere classified; D61.818 Other pancytopenia; D68.62 Lupus anticoagulant syndrome; B19.20 Unspecified viral hepatitis C without hepatic coma; K70.31 Alcoholic cirrhosis of liver with ascites; R60.0 Localized edema; M79.662 Pain in left lower leg; I25.2 Old myocardial infarction; F32.9 Major depressive disorder, single episode, unspecified; I10 Essential (primary) hypertension; F10.20 Alcohol dependence, uncomplicated; D50.0 Iron deficiency anemia secondary to blood loss (chronic); R19.5 Other fecal abnormalities; E78.5 Hyperlipidemia, unspecified; I25.119 Atherosclerotic heart disease of native coronary artery with unspecified angina pectoris; Z91.19 Patient's noncompliance with other medical treatment and regimen; Z95.1 Presence of aortocoronary bypass graft
CPT/HCPCS: 36415; 80053; 82272; 85007; 85025; 86850; 86900; 94640; 97802; 99306; 99309; 99310; 99316

== ENCOUNTER 2018-04-02 12:09 | Outpatient (CLI) | END 2018-04-02 12:10 | disposition home or self-care (01) | LOC: RHC-LAB 12:09 | PROVIDERS: ATTEND Emergency Medicine | DX: I50.22 Chronic systolic (congestive) heart failure (principal); I25.118 Atherosclerotic heart disease of native coronary artery with other forms of angina pectoris | CPT/HCPCS: 36415; 80053; 85025 ==

== ENCOUNTER 2018-09-04 12:25 | Outpatient (CLI) | END 2018-09-04 12:26 | disposition home or self-care (01) | LOC: LAB 12:25 | PROVIDERS: ATTEND Family Medicine | DX: E55.9 Vitamin D deficiency, unspecified (principal); D61.818 Other pancytopenia; K74.69 Other cirrhosis of liver; R18.8 Other ascites; N18.2 Chronic kidney disease, stage 2 (mild) | CPT/HCPCS: 36415; 80053; 82306; 85025 ==

== ENCOUNTER 2018-09-10 13:32 | Outpatient (CLI) | END 2018-09-10 13:33 | disposition home or self-care (01) | LOC: LAB 13:32 | PROVIDERS: ATTEND Family Medicine | DX: N17.9 Acute kidney failure, unspecified (principal) | CPT/HCPCS: 36415; 80053; 82140 ==

== ENCOUNTER 2018-10-09 12:02 | Outpatient (CLI) | END 2018-10-09 12:03 | disposition home or self-care (01) | LOC: RHC-LAB 12:02 → FCC-LAB 12:03 | PROVIDERS: ATTEND Nurse Practitioner Family | DX: K74.69 Other cirrhosis of liver (principal); I10 Essential (primary) hypertension; R18.8 Other ascites | CPT/HCPCS: 36415; 80053; 85025; 85610; 85730 ==

== ENCOUNTER 2019-01-11 09:54 | Outpatient (CLI) | END 2019-01-11 09:55 | disposition home or self-care (01) | LOC: LAB 09:54 | PROVIDERS: ATTEND Nurse Practitioner Family | DX: B18.2 Chronic viral hepatitis C (principal) | CPT/HCPCS: 36415; 87902 ==